=== PATIENT | female | born 1970 | race Caucasian/White ===

== ENCOUNTER 2018-08-09 14:33 | Observation (INO) ==
[2018-08-09] MEDS ORDERED: NORMAL SALINE 1,000 ML IV ONE ×2 (15:03→16:20)
[2018-08-09] MEDS ORDERED: INSULIN LISPRO 100 UNITS/ML VIAL SC ONE ×2 (15:06→16:20)
--- NOTE | 2018-08-09 15:07 | ERNOTE ---
Trauma/Assault HPI - Narrative Date of Service: 08/09/18 - General Stated Complaint: fall Time Seen by Provider: 08/09/18 14:44 Source: patient - Immun/Allergies/Home Medications Immunizations: IMMUNIZATION HX Immunizations Up to Date Yes History of Influenza Vaccine No Hx Pneumococcal Vaccination No Allergies/Adverse Reactions: Allergies asenapine maleate [From Saphris] Allergy (Intermediate, Verified 08/09/18 14:40) Hives metformin [From Glucophage] Allergy (Intermediate, Verified 08/09/18 14:40) generalized swelling, rash asenapine [From Saphris] Adverse Reaction (Severe, Verified 08/09/18 14:40) skin crawling and twitching clozapine [From Clozaril] Adverse Reaction (Severe, Verified 08/09/18 14:40) suicidal and homicidal ideations, rash Tetanus Vaccines and Toxoid [Tetanus] Adverse Reaction (Mild, Verified 08/09/18 14:40) bloated Home Medications: HOME MEDICATIONS albuterol sulfate HFA 90 mcg/actuation aerosol inhaler 1 inh IH Q6H PRN #18 g 04/11/18 [Last Taken Unknown] guaifenesin ER 1,200 mg tablet, extended release 12 hr 1,200 mg PO Q12H PRN #20 tab 04/11/18 [Last Taken 08/09/18] diazepam 5 mg tablet 5 mg PO QID PRN #120 tab 04/12/18 [Last Taken Unknown] escitalopram 20 mg tablet 20 mg PO DAILY #30 tab 04/12/18 [Last Taken Unknown] insulin degludec (U-200) 200 unit/mL (3 mL) subcutaneous pen 42 unit SUBCUT HS #9 ml 04/25/18 [Last Taken 08/08/18] blood sugar diagnostic strips See Dose Instructions .ROUTE .MEDSUPPLY #100 ea 05/17/18 [Last Taken Unknown] blood-glucose meter kit See Dose Instructions .ROUTE .MEDSUPPLY #1 ea 05/17/18 [Last Taken Unknown] lancets 33 gauge See Dose Instructions .ROUTE .MEDSUPPLY #100 ea 05/17/18 [Last Taken 08/09/18] omeprazole 20 mg capsule,delayed release 20 mg PO DAILY #30 cap 05/17/18 [Last Taken 08/09/18] atorvastatin 40 mg tablet 40 mg PO HS #90 tab 06/05/18 [Last Taken Unknown] lisinopril 5 mg tablet 5 mg PO DAILY #90 tab 06/05/18 [Last Taken Unknown] pen needle, diabetic 31 gauge x 09/21" See Dose Instructions .ROUTE .MEDSUPPLY #100 ea 06/05/18 [Last Taken 08/09/18] benztropine 1 mg tablet 1 mg PO TID PRN #90 tab 06/14/18 [Last Taken Unknown] dextroamphetamine-amphetamine 20 mg tablet 20 mg PO BID #60 tab 06/14/18 [Last Taken Unknown] escitalopram 10 mg tablet 10 mg PO DAILY #30 tab 06/14/18 [Last Taken Unknown] fluphenazine 5 mg tablet 5 mg PO TID PRN #90 tab 06/14/18 [Last Taken 08/09/18] lamotrigine 200 mg tablet 200 mg PO BID #60 tab 06/14/18 [Last Taken 08/09/18] lithium carbonate 150 mg capsule 300 mg PO HS PRN #60 cap 06/14/18 [Last Taken 08/09/18] zolpidem 10 mg tablet 10 mg PO HS #30 tab 06/14/18 [Last Taken 08/08/18] benzonatate 100 mg capsule 100 mg PO Q6H PRN #30 cap 06/20/18 [Last Taken Unknown] insulin aspart U- 100 100 unit/mL subcutaneous pen 20 unit SUBCUT TID #15 ml 06/28/18 [Last Taken 08/09/18] fluphenazine decanoate 25 mg/mL injection solution 50 mg SUB-Q Q3W #5 ml 07/26/18 [Last Taken Unknown] - History of Present Illness Date (Duration): 08/09/18 Narrative: This patient is a 47-year-old female who arrived by ambulance after syncopal episode. She said that she woke up today about 2:30 PM. She has not had anything to eat or drink today. She has not taken any medications. She was considering checking her blood sugar and getting something to eat when a neighbor knocked on the door. When she walked to the door, she ended up on the floor. She did not injure herself. She does not remember feeling dizzy or lightheaded prior. She had no palpitations. She denies having previous episodes of syncope or any arrh ythmias. She has not taken her medications this morning. Her blood sugar here was 439. Location Occurred: Reports: home Pain Location: Reports: none Method of Injury: Reports: fall Review of Systems - Review of Systems Constitutional: Absent: recent illness, fever, chills, diaphoresis, weakness, weight loss EYE: Absent: eye pain, eye discharge, blurred vision, double vision ENT: Absent: ear pain, ear discharge, nose pain, nose congestion, nasal drainage, sore throat Respiratory: Present: cough - She has a small chronic cough.. Absent: shortness of breath Cardiology: Present: syncope. Absent: chest pain, palpitations Gastrointestinal/Abdominal: Absent: nausea, vomiting, diarrhea, constipation, abdominal pain Genitourinary: Absent: frequency, pain, dysuria, hematuria Musculoskeletal: Absent: back pain, muscle pain, neck pain, joint pain Skin: Absent: rash Neurological: Present: anxiety. Absent: depressed, headache, dizziness/light- headedness, weakness, numbness Endocrine: Present: other - She has diabetes. She said her blood sugars normally in the 200s. It has been in the 400s in the past. Hematologic/Lymphatic: Present: other - No active bleeding. Psych: Present: anxiety. Absent: depressed Medical History (Last Reviewed 08/09/18 @ 15:13 by Bryn Marquez MD) COPD (chronic obstructive pulmonary disease) (Chronic) Bronchial asthma (Chronic) Schizoaffective disorder (Chronic) Borderline personality disorder (Chronic) Attention deficit disorder of adult with hyperactivity (Chronic) ADHD (attention deficit hyperactivity disorder) Borderline personality disorder Chronic headaches Degenerative disc disease lumbar Diabetes mellitus Fatigue due to depression GERD (gastroesophageal reflux disease) Generalized anxiety disorder Hyperlipidemia Hypersomnia Schizoaffective disorder, bipolar type Seasonal allergic rhinitis Alcoholism Surgical History: Surgical History (Last Reviewed 08/09/18 @ 15:13 by Bryn Marquez MD) S/P epidural steroid injection Family History: Family History (Last Reviewed 08/09/18 @ 15:13 by Bryn Marquez MD) Grandmother Cancer breast CA- paternal Heart disease maternal Diabetes maternal and paternal Mother Diabetes Father Bladder neoplasm, Onset Age: 70 malignant- Social History: Preferred Language Bengali Smoking Status Current every day smoker Have you smoked in the past 12 Yes months Abuse History No History of abuse Psych History Hx of Depression,Hx of Bipolar Disorder Alcohol Use occasionally Drug Use none (Last Reviewed 07/26/18 @ 15:44 by Flori Beckford RN) No Social History Section defined Physical Exam - Physical Exam General Appearance: Present: alert, no apparent distress, obese Head Exam: Present: normal inspection, no evidence of injury, no tenderness w palpation Eye Exam: Normal inspection: bilateral Ears, Nose, Throat: Present: normal ENT inspection, dry mucous membranes Neck: Present: normal inspection, nontender, supple Respiratory: Present: no respiratory distress, normal breath sounds, no accessory muscle use, chest nontender, lungs clear Cardiovascular/Chest: Present: regular rate, rhythm, no murmur Gastrointestinal/Abdominal: Present: normal bowel sounds, nontender, nondistended, no organomegaly Back Exam: Present: normal inspection, normal range of motion, no vertebral tenderness Extremity Exam: Present: normal inspection, non-tender, normal range of motion, no edema Neurological Exam: Present: alert, oriented, normal mood/affect, no motor/sensory deficits Skin Exam: Present: normal color, warm/dry Progress - Date and Time Seen: Date and Time: 08/09/18 15:44 The orthostatic vital signs were positive. 08/09/18 16:21 We talked about the labs and possible admission for acute kidney injury, dehydration, and hyperglycemia. The patient is not interested. She will be given more fluids and insulin and we will rediscuss this. 08/09/18 16:38 The chest x-ray is done and read by the radiologist. The patient will be started on antibiotics. Her cousin would like her admitted. 08/09/18 17:25 I talked with the patient again about admission. She is agreeable. I spoke with Dr. Landa and he is agreeable. - Results and Orders Patient's Lab Results:: I have reviewed the patient's lab results. Results and Orders: Laboratory Tests 08/09/18 08/09/18 08/09/18 15:01 15:10 15:10 WBC 19.6 H Hgb 11.6 L Hct 31.9 L Plt Count 351 Neutrophils % (Manual) 83 H Lymphocytes % (Manual) 7 L Monocytes % (Manual) 8 Atypic/Reactive Lymphs 2 Plasma Sodium 138 Potassium 4.0 Chloride 94 L Carbon Dioxide 27.5 Anion Gap 15.5 H BUN 63 H D Creatinine 1.95 H D Est GFR (Non-Af Amer) 29 L D Random Glucose 405 H Calcium Adj for Albumin 9.9 Total Bilirubin 0.4 AST 26 ALT 60 Alkaline Phosphatase 89 Total Protein 6.7 Albumin 2.8 L Urine Color Urine Appearance Urine pH Ur Specific [place] Urine Protein Urine Glucose (UA) Urine Ketones Urine Blood Urine Nitrate Urine Bilirubin Urine Urobilinogen Ur Leukocyte Esterase Urine RBC Urine WBC Ur Epithelial Cells Amorphous Sediment Urine Bacteria Urine Culture Comments Urine HCG, Qual Negative Urine Opiates Screen Barbiturate Screen Ur Phencyclidine Scrn Urine Amphetamine U Benzodiazepines Scrn Urine Cocaine Screen Urine Marijuana (THC) Serum Ketones Negative 08/09/18 08/09/18 15:32 15:37 WBC Hgb Hct Plt Count Neutrophils % (Manual) Lymphocytes % (Manual) Monocytes % (Manual) Atypic/Reactive Lymphs Plasma Sodium Potassium Chloride Carbon Dioxide Anion Gap BUN Creatinine Est GFR (Non-Af Amer) Random Glucose Calcium Adj for Albumin Total Bilirubin AST ALT Alkaline Phosphatase Total Protein Albumin Urine Color Yellow Urine Appearance Clear Urine pH 6.0 Ur Specific [place] 1.020 Urine Protein Negative Urine Glucose (UA) >=1000 H Urine Ketones 15 Urine Blood 5 H Urine Nitrate Negative Urine Bilirubin Negative Urine Urobilinogen Normal Ur Leukocyte Esterase Negative Urine RBC 5-10 H Urine WBC 0-5 Ur Epithelial Cells 5-10 H Amorphous Sediment Trace Urine Bacteria 1+ H Urine Culture Comments Culture to follow Urine HCG, Qual Urine Opiates Screen Negative Barbiturate Screen Negative Ur Phencyclidine Scrn Negative Urine Amphetamine Positive H U Benzodiazepines Scrn Positive H Urine Cocaine Screen Negative Urine Marijuana (THC) Negative Serum Ketones - Vital Signs Patient's Vital Signs:: I have reviewed the patient's vital signs. Vital Signs: Vital Signs 08/09/18 14:35 08/09/18 14:42 Temperature 36.3 C Pulse Rate 110 H 108 H Respiratory Rate 21 H Blood Pressure 152/85 H O2 Sat by Pulse Oximetry 97 - EKG EKG #1 EKG read: Interp. by me EKG Comments: Sinus tachycardia Rate [address] or T wave changes Compared to EKG dated 05/28/12, the rate is faster - X-Ray X-Ray #1 X-Ray: chest Interpretation: Reviewed by me X-ray Comments: HISTORY: Syncope, elevated WBC. Additional history from technologist: History of fall. History of asthma. TECHNIQUE: PA and lateral views of the chest were obtained. 2 images. COMPARISONS: 03/03/2008 FINDINGS: Chest PA Lateral * Normal to somewhat hyperinflated lungs noted. Linear opacity seen at the left lung base, with slight obscuration of the apex of the left hemidiaphragm suggestive of either potential infiltrate versus atelectasis. Central bronchial wall prominence noted. No significant vascular congestion suggested. No pneumothorax or pleural fluid collections. Cardiac silhouette within normal limits. Trachea is in normal position. Bones show degenerative changes of the spine. IMPRESSION: 1. Small left lung basilar atelectasis versus pulmonary infiltrate. Correlate clinically. Recommend radiographic follow-up (e.g. in 6-8 weeks) to document resolution, as potential neoplasm would be difficult to exclude. 2. Central bronchial wall prominence noted. Consider acute or chronic bronchitis or reactive airways disease. 3. Additional comments are as above. Electronically signed by Aleida Araya M.D. - Progress/Reassessment Chief Complaint: Fall Departure Clinical Impression: Acute kidney injury, Hyperglycemia, Chest x-ray abnormality - Departure Disposition: Still a patient Condition: Stable Critical Care Time - Critical Care Critical Time Spent:: No
[2018-08-09 15:32] LABS: ALT 60 U/L (19-67); AST 26 U/L (0-48); Albumin * 2.8 gm/dl (3.4-5.0); Alkaline Phosphatase * 89 U/L (50-170); Anion Gap 15.5 mmol/L (6.8-13.8); BUN/Creatinine Ratio 32.3 (9.0-21.6); Bilirubin, Total 0.4 mg/dL (0.0-1.1); Blood Urea Nitrogen 63 mg/dL (3-23); Ca. Corrected For Albumin 9.9 mg/dL (8.4-10.2); Calcium * 9.3 mg/dL (7.9-10.9); Carbon Dioxide 27.5 mmol/L (24-32.6); Chloride 94 mmol/L (97-106); Glucose * 405 mg/dL (70-110); Hematocrit 31.9 % (37.0-47.0); Hemoglobin 11.6 gm/dL (12.5-16.0); Mean Cell Volume 90.4 fl (78-100); Mean Corpuscular Hemoglobin 32.9 pg (27-31); Mean Corpuscular Hgb Conc 36.4 g/dl (32-36); Mean Platelet Volume 10.7 fl (8-12.5); Platelet Count 351 K/mm3 (150-450); Red Blood Count 3.53 M/mm3 (4.2-5.4); Sodium 133 mmol/L (132-142); Total Protein 6.7 gm/dL (6.2-8.2); White Blood Count 19.6 K/mm3 (4.0-10.5)
[2018-08-09 15:38] LABS: Urine Bilirubin Negative (NEGATIVE); Urine Ketone 15 mg/dL (NEGATIVE); Urine Nitrite Negative (NEGATIVE); Urine Protein Negative (NEGATIVE); Urine Urobilinogen Normal (NORMAL)
[2018-08-09 15:52] LABS: Total Cells Counted 100
[2018-08-09 15:56] LABS: Urine Appearance Clear (CLEAR); Urine Bacteria 1+; Urine Blood 5 /ul (NEGATIVE); Urine Color Yellow; Urine WBC 0-5 /hpf (0-5)
[2018-08-09 15:57] LABS: Urine Amorphous Sediment TRACE (NONE-FEW)
[2018-08-09 16:13] LABS: Atypical (Reactive) Lymph 2 % (0-2); Lymphocyte 7 % (20-51); Monocyte 8 % (0-9); Neutrophil 83 % (42-75); Neutrophil # 16.3 K/mm3 (1.3-6.0)
[2018-08-09 16:15] LABS: Platelet Estimate Normal (NORMAL)
[2018-08-09 16:16] LABS: Microcytosis 1+
[2018-08-09 16:17] LABS: Hypochromia 1+
[2018-08-09 16:25] LABS: Cocaine Ur Negative (NEGATIVE); Urine Barbiturate Negative (NEGATIVE); Urine Opiates Negative (NEGATIVE); Urine PCP Negative (NEGATIVE); Urine THC Negative (NEGATIVE)
[2018-08-09 16:26] LABS: Urine Benzodiazepines Positive (NEGATIVE)
[2018-08-09] MEDS ORDERED: cefTRIAXone SODIUM 1,000 MG/100 ML BAG IV ONE (16:33)
[2018-08-09] MEDS ORDERED: AZITHROMYCIN 250 MG TABLET PO ONE (16:34)
[2018-08-09] MEDS ORDERED: NORMAL SALINE 1,000 ML IV PRN (22:39)
--- NOTE | 2018-08-10 06:43 | HP ---
Chief Complaint - Chief Complaint Date of Service: 08/10/18 Time of Service: 06:00 Chief Complaint: Weakness, fatigue History of Present Illness: Patti is a 48 yo female that presents to the ER with nausea, vomiting, poor oral intake, and urinary frequency. She is a diabetic. Blood sugars are elevated but no evidence of diabetic ketoacidosis on bloodwork. Creatinine is elevated at 1.9, with a baseline near 1. She reports not drinking well for the last several days. No fever, chills. Medical History (Last Reviewed 08/19/18 @ 11:53 by Flori Beckford RN) COPD (chronic obstructive pulmonary disease) (Chronic) Bronchial asthma (Chronic) Schizoaffective disorder (Chronic) Borderline personality disorder (Chronic) Attention deficit disorder of adult with hyperactivity (Chronic) ADHD (attention deficit hyperactivity disorder) Borderline personality disorder Chronic headaches Degenerative disc disease lumbar Diabetes mellitus Fatigue due to depression GERD (gastroesophageal reflux disease) Generalized anxiety disorder Hyperlipidemia Hypersomnia Schizoaffective disorder, bipolar type Seasonal allergic rhinitis Alcoholism Surgical History: Surgical History (Last Reviewed 08/19/18 @ 11:53 by Flori Beckford RN) S/P epidural steroid injection Family History: Family History (Last Reviewed 08/19/18 @ 11:53 by Flori Beckford RN) Grandmother Diabetes maternal and paternal Heart disease maternal Cancer breast CA- paternal Mother Diabetes Father Bladder neoplasm, Onset Age: 70 malignant- Social History: Patient Lives/Resources Home Utilized Occupation unemployed Preferred Language Citizen Of [place] Do you have any alevism or No cultural preference? Smoking Status Current every day smoker Have you smoked in the past 12 Yes months Do you dip or chew tobacco No Abuse History No History of abuse Psych History Hx of Depression,Hx of Bipolar Disorder Alcohol Use occasionally Drug Use none (Last Reviewed 07/26/18 @ 15:44 by Flori Beckford RN) No Social History Section defined Review Of Systems (GEN) - Review of Systems Generalized/Overall Review: Present: Weakness, Fatigue. Absent: Chills, Fever EENTM: Present: No Symptoms Reported Respiratory: Absent: Cough, Shortness of Breath Cardiac: Absent: Chest Pain, Edema, Palpitations Abdominal: Present: Nausea, Vomiting, Abdominal Pain Genitourinary: Present: Frequency. Absent: Hematuria, Dysuria Musculoskeletal: Present: No Symptoms Reported Neurological: Present: No Symptoms Reported Skin: Present: No Symptoms Reported Immunizations: IMMUNIZATION HX Immunizations Up to Date Yes History of Influenza Vaccine No Hx Pneumococcal Vaccination No Allergies/Adverse Reactions: Allergies Allergy/AdvReac Type Severity Reaction Status Date / Time asenapine maleate Allergy Intermediate Hives Verified 08/19/18 11:48 [From Saphris] metformin [From Glucophage] Allergy Intermediate generalized Verified 08/19/18 11:48 swelling, rash asenapine [From Saphris] AdvReac Severe skin Verified 08/19/18 11:48 crawling and twitching clozapine [From Clozaril] AdvReac Severe suicidal Verified 08/19/18 11:48 and homicidal ideations, rash Tetanus Vaccines and Toxoid AdvReac Mild bloated Verified 08/19/18 11:48 [Tetanus] Home Medications: HOME MEDICATIONS albuterol sulfate HFA 90 mcg/actuation aerosol inhaler 1 inh IH Q6H PRN #18 g 04/11/18 [Last Taken Unknown] guaifenesin ER 1,200 mg tablet, extended release 12 hr 1,200 mg PO Q12H PRN #20 tab 04/11/18 [Last Taken 08/09/18] diazepam 5 mg tablet 5 mg PO QID PRN #120 tab 04/12/18 [Last Taken Unknown] escitalopram 20 mg tablet 20 mg PO DAILY #30 tab 04/12/18 [Last Taken Unknown] insulin degludec (U-200) 200 unit/mL (3 mL) subcutaneous pen 42 unit SUBCUT HS #9 ml 04/25/18 [Last Taken 08/08/18] blood sugar diagnostic strips See Dose Instructions .ROUTE .MEDSUPPLY #100 ea 05/17/18 [Last Taken Unknown] blood-glucose meter kit See Dose Instructions .ROUTE .MEDSUPPLY #1 ea 05/17/18 [Last Taken Unknown] lancets 33 gauge See Dose Instructions .ROUTE .MEDSUPPLY #100 ea 05/17/18 [Last Taken 08/09/18] omeprazole 20 mg capsule,delayed release 20 mg PO DAILY #30 cap 05/17/18 [Last [place] 08/09/18] atorvastatin 40 mg tablet 40 mg PO HS #90 tab 06/05/18 [Last Taken Unknown] lisinopril 5 mg tablet 5 mg PO DAILY #90 tab 06/05/18 [Last Taken Unknown] pen needle, diabetic 31 gauge x 3/16" See Dose Instructions .ROUTE .MEDSUPPLY #100 ea 06/05/18 [Last Taken 08/09/18] benztropine 1 mg tablet 1 mg PO TID PRN #90 tab 06/14/18 [Last Taken Unknown] dextroamphetamine-amphetamine 20 mg tablet 20 mg PO BID #60 tab 06/14/18 [Last Taken Unknown] escitalopram 10 mg tablet 10 mg PO DAILY #30 tab 06/14/18 [Last Taken Unknown] fluphenazine 5 mg tablet 5 mg PO TID PRN #90 tab 06/14/18 [Last Taken 08/09/18] lamotrigine 200 mg tablet 200 mg PO BID #60 tab 06/14/18 [Last Taken 08/09/18] lithium carbonate 150 mg capsule 300 mg PO HS PRN #60 cap 06/14/18 [Last Taken 08/09/18] zolpidem 10 mg tablet 10 mg PO HS #30 tab 06/14/18 [Last Taken 08/08/18] benzonatate 100 mg capsule 100 mg PO Q6H PRN #30 cap 06/20/18 [Last Taken Unknown] insulin aspart U- 100 100 unit/mL subcutaneous pen 20 unit SUBCUT TID #15 ml 06/28/18 [Last Taken 08/09/18] fluphenazine decanoate 25 mg/mL injection solution 50 mg SUB-Q Q3W #5 ml 07/26/18 [Last Taken Unknown] Levofloxacin [Levaquin] 750 mg PO DAILY #5 tab 08/10/18 [Last Taken Unknown] Exam - Exam Vital Signs: Vital Signs - Last Taken Temp 36.8 C 08/10/18 03:00 Pulse 101 H 08/10/18 03:00 Resp 16 08/10/18 03:00 BP 143/74 H 08/10/18 03:00 Pulse Ox 99 08/10/18 03:00 Constitutional: Present: Alert, Oriented x3, Cooperative ENT Exam: Present: hearing grossly normal Eye Exam: bilateral eye: normal inspection Respiratory: Present: lungs clear, normal breath sounds Cardiovascular/Chest: Present: regular rate, rhythm, no murmur Abdomen: Present: Normal bowel sounds, soft, nontender, nondistended Extremity: Present: normal inspection, normal capillary refill Skin Exam: Present: normal color, warm/dry, no cyanosis Lymphatic: Present: no adenopathy Neurologic: Present: alert, normal mood/affect, oriented x 3 Appearance: Present: appropriate appearance, appropriate insight Eye contact: Present: cooperative, good eye contact, normal speech Thoughts: Present: normal thought pattern, no apparent hallucination Diagnostic Studies: Abnormal Lab Results 08/09/18 08/09/18 08/09/18 Range/Units 15:10 15:10 15:32 WBC 19.6 H (4.0-10.5) K/mm3 RBC 3.53 L (4.2-5.4) M/mm3 Hgb 11.6 L (12.5-16.0) gm/dL Hct 31.9 L (37.0-47.0) % MCH 32.9 H (27-31) pg MCHC 36.4 H (32-36) g/dl Neutrophils % (Manual) 83 H (42-75) % Lymphocytes % (Manual) 7 L (20-51) % Neutrophils # (Manual) 16.3 H (1.3-6.0) K/mm3 Lymphocytes # (Manual) 1.4 L (1.5-3.5) k/mm3 Monocytes # (Manual) 1.6 H (0.0-1.0) k/mm3 Chloride 94 L (97-106) mmol/L Anion Gap 15.5 H (6.8-13.8) mmol/L BUN 63 H D (3-23) mg/dL Creatinine 1.95 H D (0.4-1.4) mg/dL Est GFR (Non-Af Amer) 29 L D (60-130) mL/min BUN/Creatinine Ratio 32.3 H (9.0-21.6) Random Glucose 405 H (70-110) mg/dL Albumin 2.8 L (3.4-5.0) gm/dl Urine Glucose (UA) >=1000 H (NEGATIVE) mg/dL Urine Blood 5 H (NEGATIVE) /ul Urine RBC 5-10 H (0-5) /hpf Ur Epithelial Cells 5-10 H (0-5) /hpf Urine Bacteria 1+ H (NONE) Urine Amphetamine (NEGATIVE) U Benzodiazepines Scrn (NEGATIVE) 08/09/18 Range/Units 15:37 WBC (4.0-10.5) K/mm3 RBC (4.2-5.4) M/mm3 Hgb (12.5-16.0) gm/dL Hct (37.0-47.0) % MCH (27-31) pg MCHC (32-36) g/dl Neutrophils % (Manual) (42-75) % Lymphocytes % (Manual) (20-51) % Neutrophils # (Manual) (1.3-6.0) K/mm3 Lymphocytes # (Manual) (1.5-3.5) k/mm3 Monocytes # (Manual) (0.0-1.0) k/mm3 Chloride (97-106) mmol/L Anion Gap (6.8-13.8) mmol/L BUN (3-23) mg/dL Creatinine (0.4-1.4) mg/dL Est GFR (Non-Af Amer) (60-130) mL/min BUN/Creatinine Ratio (9.0-21.6) Random Glucose (70-110) mg/dL Albumin (3.4-5.0) gm/dl Urine Glucose (UA) (NEGATIVE) mg/dL Urine Blood (NEGATIVE) /ul Urine RBC (0-5) /hpf Ur Epithelial Cells (0-5) /hpf Urine Bacteria (NONE) Urine Amphetamine Positive H (NEGATIVE) U Benzodiazepines Scrn Positive H (NEGATIVE) Laboratory Results WBC 19.6 K/mm3 (4.0-10.5) H 08/09/18 15:10 RBC 3.53 M/mm3 (4.2-5.4) L 08/09/18 15:10 Hgb 11.6 gm/dL (12.5-16.0) L 08/09/18 15:10 Hct 31.9 % (37.0-47.0) L 08/09/18 15:10 MCV 90.4 fl (78-100) 08/09/18 15:10 MCH 32.9 pg (27-31) H 08/09/18 15:10 MCHC 36.4 g/dl (32-36) H 08/09/18 15:10 RDW 13.0 % (11.5-14.0) 08/09/18 15:10 Plt Count 351 K/mm3 (150-450) 08/09/18 15:10 MPV 10.7 fl (8-12.5) 08/09/18 15:10 Neutrophils % (Manual) 83 % (42-75) H 08/09/18 15:10 Lymphocytes % (Manual) 7 % (20-51) L 08/09/18 15:10 Monocytes % (Manual) 8 % (0-9) 08/09/18 15:10 Neutrophils # (Manual) 16.3 K/mm3 (1.3-6.0) H 08/09/18 15:10 Lymphocytes # (Manual) 1.4 k/mm3 (1.5-3.5) L 08/09/18 15:10 Monocytes # (Manual) 1.6 k/mm3 (0.0-1.0) H 08/09/18 15:10 Atypic/Reactive Lymphs 2 % (0-2) 08/09/18 15:10 Platelet Estimate Normal (NORMAL) 08/09/18 15:10 Hypochromasia 1+ 08/09/18 15:10 Microcytosis 1+ 08/09/18 15:10 Sodium 133 mmol/L (132-142) 08/09/18 15:10 Plasma Sodium 138 mmol/L (130-142) 08/09/18 15:10 Potassium 4.0 mmol/L (3.4-4.6) 08/09/18 15:10 Chloride 94 mmol/L (97-106) L 08/09/18 15:10 Carbon Dioxide 27.5 mmol/L (24-32.6) 08/09/18 15:10 Anion Gap 15.5 mmol/L (6.8-13.8) H 08/09/18 15:10 BUN 63 mg/dL (3-23) H D 08/09/18 15:10 Creatinine 1.95 mg/dL (0.4-1.4) H D 08/09/18 15:10 Est GFR (Non-Af Amer) 29 mL/min (60-130) L D 08/09/18 15:10 BUN/Creatinine Ratio 32.3 (9.0-21.6) H 08/09/18 15:10 Random Glucose 405 mg/dL (70-110) H 08/09/18 15:10 Calcium 9.3 mg/dL (7.9-10.9) 08/09/18 15:10 Calcium Adj for Albumin 9.9 mg/dL (8.4-10.2) 08/09/18 15:10 Total Bilirubin 0.4 mg/dL (0.0-1.1) 08/09/18 15:10 AST 26 U/L (0-48) 08/09/18 15:10 ALT 60 U/L (19-67) 08/09/18 15:10 Alkaline Phosphatase 89 U/L (50-170) 08/09/18 15:10 Total Protein 6.7 gm/dL (6.2-8.2) 08/09/18 15:10 Albumin 2.8 gm/dl (3.4-5.0) L 08/09/18 15:10 Urine Color Yellow 08/09/18 15:32 Urine Appearance Clear (CLEAR) 08/09/18 15:32 Urine pH 6.0 pH (5.0-7.0) 08/09/18 15:32 Ur Specific [place] 1.020 SP.GR. (1.005-1.010) 08/09/18 15:32 Urine Protein Negative mg/dL (NEGATIVE) 08/09/18 15:32 Urine Glucose (UA) >=1000 mg/dL (NEGATIVE) H 08/09/18 15:32 Urine Ketones 15 mg/dL (NEGATIVE) 08/09/18 15:32 Urine Blood 5 /ul (NEGATIVE) H 08/09/18 15:32 Urine Nitrate Negative (NEGATIVE) 08/09/18 15:32 Urine Bilirubin Negative mg/dl (NEGATIVE) 08/09/18 15:32 Urine Urobilinogen Normal EU/dl (NORMAL) 08/09/18 15:32 Ur Leukocyte Esterase Negative /ul (NEGATIVE) 08/09/18 15:32 Urine RBC 5-10 /hpf (0-5) H 08/09/18 15:32 Urine WBC 0-5 /hpf (0-5) 08/09/18 15:32 Ur Epithelial Cells 5-10 /hpf (0-5) H 08/09/18 15:32 Amorphous Sediment Trace (NONE-FEW) 08/09/18 15:32 Urine Bacteria 1+ (NONE) H 08/09/18 15:32 Urine Culture Comments Culture to follow 08/09/18 15:32 Urine HCG, Qual Negative (NEGATIVE) 08/09/18 15:01 Urine Opiates Screen Negative (NEGATIVE) 08/09/18 15:37 Barbiturate Screen Negative (NEGATIVE) 08/09/18 15:37 Ur Phencyclidine Scrn Negative (NEGATIVE) 08/09/18 15:37 Urine Amphetamine Positive (NEGATIVE) H 08/09/18 15:37 U Benzodiazepines Scrn Positive (NEGATIVE) H 08/09/18 15:37 Urine Cocaine Screen Negative (NEGATIVE) 08/09/18 15:37 Urine Marijuana (THC) Negative (NEGATIVE) 08/09/18 15:37 Serum Ketones Negative (NEGATIVE) 08/09/18 15:10 Assessment/Plan - Assessment/Plan (1) Acute kidney injury Assessment: Patti is a 48 yo female with acute kidney injury with creatinine of 1.9 with a usual baseline of 1. Suspect prerenal due to dehydration from nausea and vomiting. May be GI virus vs UTI. Urine evaluation pending. Will treat with IV fluids and monitor for response. Will admit to observation. Problem: Acute
[2018-08-10 07:12] LABS: Hematocrit 27.1 % (37.0-47.0); Hemoglobin 9.5 gm/dL (12.5-16.0); Mean Cell Volume 93.4 fl (78-100); Mean Corpuscular Hemoglobin 32.8 pg (27-31); Mean Corpuscular Hgb Conc 35.1 g/dl (32-36); Mean Platelet Volume 10.7 fl (8-12.5); Neutrophil # 12.4 K/mm3 (1.3-6.0); Neutrophil % 77.9 % (42-75.0); Platelet Count 251 K/mm3 (150-450); Red Cell Distribution Width 13.2 % (11.5-14.0); White Blood Count 15.9 K/mm3 (4.0-10.5)
[2018-08-10 07:43] LABS: Albumin * 2.4 gm/dl (3.4-5.0); Anion Gap 13.6 mmol/L (6.8-13.8); BUN/Creatinine Ratio 35.7 (9.0-21.6); Bilirubin, Total 0.3 mg/dL (0.0-1.1); Ca. Corrected For Albumin 9.7 mg/dL (8.4-10.2); Calcium * 8.7 mg/dL (7.9-10.9); Carbon Dioxide 26.8 mmol/L (24-32.6); Potassium 3.4 mmol/L (3.4-4.6); Total Protein 5.9 gm/dL (6.2-8.2)
[2018-08-10] MEDS ORDERED: LEVOFLOXACIN 750 MG TABLET PO SCH (09:30)
[2018-08-10] MEDS ORDERED: PANTOPRAZOLE SODIUM 20 MG TABLET.DR PO SCH (11:00)
[2018-08-10] MEDS ORDERED: BENZTROPINE MESYLATE 0.5 MG TABLET PO PRN (11:36)
[2018-08-10] MEDS ORDERED: DIAZEPAM 5 MG TABLET PO PRN (11:36)
[2018-08-10] MEDS ORDERED: LITHIUM CARBONATE 150 MG CAPSULE PO PRN (11:36)
[2018-08-10] MEDS ORDERED: LISINOPRIL 5 MG TABLET PO SCH (11:45)
--- NOTE | 2018-08-10 11:59 | DS ---
(1) UTI (urinary tract infection) Problem: Acute Qualifiers: Urinary tract infection type: acute cystitis (2) Acute kidney injury Problem: Acute Description of Stay: Patti is a 47 yo female who was admitted for acute kidney injury with a creatinine of 1.9 and a baseline of 1. She is a diabetic but had no evidence of DKA or acidosis. She admitted to decreased fluid intake recently. Urine studies showed UTI. Chest Xray in the ER showed atelectasis vs pneumonia. She was given rocephin/azithromycin in the ER for possible pneumonia. I believe she has a UTI and I am not concerned about pneumonia as she does not show clinical signs or findings of pneumonia. I changed her to levaquin which will treat UTI and also cover pneumonia in case it is present. Her acute kidney injury was likely from poor oral intake and was treated and corrected with IV fluids. Today her renal function is back to normal and she will be discharged to home on Levaquin and continue her regular home medications. Procedures Performed: none Results and Findings: Pending Mircobiology Results 08/09/18 14:50 Urine,Catheterized Urine Culture - Preliminary Gram Negative Bacilli Lab Pending Results 08/09/18 15:01: Urine HCG, Qual Negative 08/09/18 15:10: WBC 19.6 H, RBC 3.53 L, Hgb 11.6 L, Hct 31.9 L, MCV 90.4, MCH 32.9 H, MCHC 36.4 H, RDW 13.0, Plt Count 351, MPV 10.7, Neutrophils % (Manual) 83 H, Lymphocytes % (Manual) 7 L, Monocytes % (Manual) 8, Neutrophils # (Manual) 16.3 H, Lymphocytes # (Manual) 1.4 L, Monocytes # (Manual) 1.6 H, Atypic/Reactive Lymphs 2, Platelet Estimate Normal, Hypochromasia 1+, Microcytosis 1+ 08/09/18 15:10: Sodium 133, Plasma Sodium 138, Potassium 4.0, Chloride 94 L, Carbon Dioxide 27.5, Anion Gap 15.5 H, BUN 63 H D, Creatinine 1.95 H D, Est GFR (Non-Af Amer) 29 L D, BUN/Creatinine Ratio 32.3 H, Random Glucose 405 H, Calcium 9.3, Calcium Adj for Albumin 9.9, Total Bilirubin 0.4, AST 26, ALT 60, Alkaline Phosphatase 89, Total Protein 6.7, Albumin 2.8 L, Serum Ketones Negative 08/09/18 15:32: Urine Color Yellow, Urine Appearance Clear, Urine pH 6.0, Ur Specific [place] 1.020, Urine Protein Negative, Urine Glucose (UA) >=1000 H, Urine Ketones 15, Urine Blood 5 H, Urine Nitrate Negative, Urine Bilirubin Negative, Urine Urobilinogen Normal, Ur Leukocyte Esterase Negative, Urine RBC 5-10 H, Urine WBC 0-5, Ur Epithelial Cells 5-10 H, Amorphous Sediment Trace, Urine Bacteria 1+ H, Urine Culture Comments Culture to follow 08/09/18 15:37: Urine Opiates Screen Negative, Barbiturate Screen Negative, Ur Phencyclidine Scrn Negative, Urine Amphetamine Positive H, U Benzodiazepines Scrn Positive H, Urine Cocaine Screen Negative, Urine Marijuana (THC) Negative 08/10/18 06:40: WBC 15.9 H, RBC 2.90 L, Hgb 9.5 L, Hct 27.1 L, MCV 93.4, MCH 32.8 H, MCHC 35.1, RDW 13.2, Plt Count 251, MPV 10.7, Immature Gran % (Auto) 0.60 H, Immature Gran # (Auto) 0.09 H, Neutrophils % 77.9 H, Lymphocytes % 12.5 L, Monocytes % 7.8, Eosinophils % 0.9, Basophils % 0.3, Nucleated RBC % 0.0, Neutrophils # 12.4 H, Lymphocytes # 1.99, Monocytes # 1.2 H, Eosinophils # 0.2, Absolute Basophils 0.0 08/10/18 06:40: Sodium 139, Plasma Sodium 141, Potassium 3.4, Chloride 102, Carbon Dioxide 26.8, Anion Gap 13.6, BUN 41 H, Creatinine 1.15, Est GFR (Non-Af Amer) 54 L D, BUN/Creatinine Ratio 35.7 H, Random Glucose 197 H D, Calcium 8.7, Calcium Adj for Albumin 9.7, Total Bilirubin 0.3, AST 16, ALT 38, Alkaline Phosphatase 77, Total Protein 5.9 L, Albumin 2.4 L Discharge Location: Home Disposition: Home self-care Condition: Stable Discharge Activity: Activity as tolerated Discharge Diet: Consistent carbs Referrals: Landa,Parag, DO [Staff Physician] - One Week (1 time hospital follow up) Yamila Garcia MD [Staff Physician] - (If she has not established with anyone recommend she establish with internal medicine) Problem Oriented Discharge Instructions to Patient/Family: Urinary Tract Infection, Pediatric, Acute Kidney Injury Prescriptions (Any new or edited meds): Levofloxacin [Levaquin] 750 mg PO DAILY #5 tablet Complete Home Medications List: Complete Home Medication List: albuterol sulfate HFA 90 mcg/actuation aerosol inhaler 1 inh IH Q6H PRN #18 g 04/11/18 guaifenesin ER 1,200 mg tablet, extended release 12 hr 1,200 mg PO Q12H PRN #20 tab 04/11/18 diazepam 5 mg tablet 5 mg PO QID PRN #120 tab 04/12/18 escitalopram 20 mg tablet 20 mg PO DAILY #30 tab 04/12/18 insulin degludec (U-200) 200 unit/mL (3 mL) subcutaneous pen 42 unit SUBCUT HS #9 ml 04/25/18 blood sugar diagnostic strips See Dose Instructions .ROUTE .MEDSUPPLY #100 ea 05/17/18 blood-glucose meter kit See Dose Instructions .ROUTE .MEDSUPPLY #1 ea 05/17/18 lancets 33 gauge See Dose Instructions .ROUTE .MEDSUPPLY #100 ea 05/17/18 omeprazole 20 mg capsule,delayed release 20 mg PO DAILY #30 cap 05/17/18 atorvastatin 40 mg tablet 40 mg PO HS #90 tab 06/05/18 lisinopril 5 mg tablet 5 mg PO DAILY #90 tab 06/05/18 pen needle, diabetic 31 gauge x 3/16" See Dose Instructions .ROUTE .MEDSUPPLY #100 ea 06/05/18 benztropine 1 mg tablet 1 mg PO TID PRN #90 tab 06/14/18 dextroamphetamine-amphetamine 20 mg tablet 20 mg PO BID #60 tab 06/14/18 escitalopram 10 mg tablet 10 mg PO DAILY #30 tab 06/14/18 fluphenazine 5 mg tablet 5 mg PO TID PRN #90 tab 06/14/18 lamotrigine 200 mg tablet 200 mg PO BID #60 tab 06/14/18 lithium carbonate 150 mg capsule 300 mg PO HS PRN #60 cap 06/14/18 zolpidem 10 mg tablet 10 mg PO HS #30 tab 06/14/18 benzonatate 100 mg capsule 100 mg PO Q6H PRN #30 cap 06/20/18 insulin aspart U- 100 100 unit/mL subcutaneous pen 20 unit SUBCUT TID #15 ml 06/28/18 fluphenazine decanoate 25 mg/mL injection solution 50 mg SUB-Q Q3W #5 ml 07/26/18 Levofloxacin [Levaquin] 750 mg PO DAILY #5 tablet 08/10/18
[2018-08-10] MEDS ORDERED: INSULIN ASPART 100 UNITS/ML VIAL SC SCH (12:00)
[2018-08-10 12:42] VITALS: BP 154/72
[2018-08-10] MEDS ORDERED: lamoTRIgine 100 MG TABLET PO SCH (21:00)
[2018-08-10] MEDS ORDERED: Insulin Degludec [Tresiba Flextouch U-200] SC SCH (21:00)
== END 2018-08-10 11:45 | disposition home or self-care (01) ==
LOC: ER 14:33 → MS 14:33
PROVIDERS: ADMIT Family Medicine; ATTEND Family Medicine
CPT/HCPCS: 36415; 71020; 71046; 80053; 80178; 80307; 81001; 82009; 84703; 85025; 87077; 87086; 87186; 93005; 96361; 96365; 96372; 99285; G0378

== ENCOUNTER 2018-12-17 21:12 | Observation (INO) ==
--- NOTE | 2018-12-17 22:54 | ERNOTE ---
Syncope ER HPI Stated Complaint: FALL Time Seen by Provider: 12/17/18 21:12 Source: patient, EMS, RN notes reviewed Exam Limitations: no limitations Immunizations: IMMUNIZATION HX Immunizations Up to Date Yes History of Influenza Vaccine Yes Hx Pneumococcal Vaccination Yes Allergies/Adverse Reactions: Allergies asenapine maleate [From Saphris] Allergy (Intermediate, Verified 12/11/18 11:23) Hives metformin [From Glucophage] Allergy (Intermediate, Verified 12/11/18 11:23) generalized swelling, rash asenapine [From Saphris] Adverse Reaction (Severe, Verified 12/11/18 11:23) skin crawling and twitching clozapine [From Clozaril] Adverse Reaction (Severe, Verified 12/11/18 11:23) suicidal and homicidal ideations, rash Tetanus Vaccines and Toxoid [Tetanus] Adverse Reaction (Mild, Verified 12/11/18 11:23) bloated Home Medications: HOME MEDICATIONS diazepam 5 mg tablet 5 mg PO QID PRN #120 tab 09/13/18 [Last Taken Unknown] escitalopram 20 mg tablet 20 mg PO DAILY #30 tab 09/13/18 [Last Taken Unknown] lithium carbonate 300 mg capsule 600 mg PO HS PRN #60 cap 09/13/18 [Last Taken Unknown] Atorvastatin Calcium 40 mg PO HS 12/17/18 [Last Taken Unknown] Benztropine Mesylate 1 mg PO TID 12/17/18 [Last Taken Unknown] Dextroamphetamine/Amphetamine [Amphetamine Salts] 20 mg PO BID 12/17/18 [Last Taken Unknown] Fluphenazine HCl [Fluphenazine] 5 mg PO TID 12/17/18 [Last Taken Unknown] Gabapentin 100 mg PO BID 12/17/18 [Last Taken Unknown] Insulin Aspart [Novolog Flexpen] 20 unit SQ TID 12/17/18 [Last Taken Unknown] Insulin Degludec [Tresiba Flextouch U-200] 42 unit SQ HS 12/17/18 [Last Taken Unknown] Lamotrigine [Lamictal] 200 mg PO BID 12/17/18 [Last Taken Unknown] Lisinopril 5 mg PO DAILY 12/17/18 [Last Taken Unknown] Omeprazole [Prilosec] 20 mg PO DAILY 12/17/18 [Last Taken Unknown] Pantoprazole Sodium 40 mg PO DAILY 12/17/18 [Last Taken Unknown] Zolpidem Tartrate 10 mg PO HS 12/17/18 [Last Taken Unknown] Ferrous Sulfate 325 mg PO DAILY #100 tab 12/19/18 [Last Taken Unknown] traMADol HCL [Tramadol HCl] 50 mg PO QID #60 tab 12/19/18 [Last Taken Unknown] - History of Present Illness Narrative: Patient brought in by EMS after having multiple falling episodes at home. She was noted to have a low blood pressure, and that every time she got up to walk around (just today), she would "pass out" and fall. EMS quite concerned over patient's inability to stay upright. Patient appears very fatigued. She will wake up and converse, but promptly goes right back to sleep. Prior Episodes: Present: multiple episodes today Symptoms prior to episode: Present: diaphoresis, light headedness, rapid heart rate Activity at time of episode: Present: standing Character of event: Present: brief (seconds), awake and alert after becoming supine. Absent: prolonged (minutes), dazed, still comatose, almost passed out, became unresponsive, seizure activity observed Location of Injury: Present: none Current Symptoms: Present: back to normal - as long as she remains laying down Prior Treament: Denies: recently seen - patient has been off of most of her medications, her friend brought in a large plastic box with her medications. She is noted to have just started back on some of her medications. Review of Systems - Review of Systems Constitutional: Present: diaphoresis, weakness, fatigue, malaise, decreased activity level. Absent: recent illness, fever, chills EYE: Absent: eye pain, eye discharge ENT: Absent: ear pain, nasal drainage, sore throat Respiratory: Absent: shortness of breath, cough Cardiology: Absent: chest pain, palpitations Gastrointestinal/Abdominal: Absent: nausea, vomiting, diarrhea, abdominal pain Genitourinary: Absent: frequency, pain, dysuria Musculoskeletal: Absent: back pain, muscle pain, joint pain Skin: Present: no symptoms reported Neurological: Present: dizziness/light-headedness, weakness. Absent: anxiety, depressed Endocrine: Present: no symptoms reported Hematologic/Lymphatic: Present: no symptoms reported Psych: Present: emotional problems Medical History (Updated 12/19/18 @ 11:55 by Anabell Tejada) COPD (chronic obstructive pulmonary disease) (Chronic) Bronchial asthma (Chronic) Schizoaffective disorder (Chronic) Borderline personality disorder (Chronic) Attention deficit disorder of adult with hyperactivity (Chronic) Left knee pain Onset Date: Unknown ADHD (attention deficit hyperactivity disorder) Borderline personality disorder Chronic headaches Degenerative disc disease lumbar Diabetes mellitus Fatigue due to depression GERD (gastroesophageal reflux disease) Generalized anxiety disorder Hyperlipidemia Hypersomnia Schizoaffective disorder, bipolar type Seasonal allergic rhinitis Alcoholism Surgical History: Surgical History (Updated 08/26/18 @ 08:13 by Parag Landa DO) S/P epidural steroid injection Family History: Family History (Updated 01/16/18 @ 16:06 by Flori Beckford, RODY) Grandmother Diabetes maternal and paternal Heart disease maternal Cancer breast CA- paternal Mother Diabetes Father Bladder neoplasm, Onset Age: 70 malignant- Social History: Preferred Language Nepalese Do you have any roman catholic or No cultural preference? Smoking Status Current every day smoker Smoking packs per day 0.5 Abuse History No History of abuse Psych History Hx of Depression,Hx of Bipolar Disorder Alcohol Use none Drug Use none (Last Reviewed 12/11/18 @ 11:25 by Flori Beckford RN) No Social History Section defined Physical Exam - Physical Exam General Appearance: Present: wd/wn, alert - as long as she is laying down Head Exam: Present: normal inspection, no evidence of injury Eye Exam: Normal inspection: bilateral, PERRL: bilateral, EOMI: bilateral, Conjunctivae pale: bilateral Ears, Nose, Throat: Present: normal ENT inspection, normal pharynx Neck: Present: normal inspection, nontender Respiratory: Present: no respiratory distress, normal breath sounds, no accessory muscle use, chest nontender, lungs clear Cardiovascular/Chest: Present: regular rate, rhythm - as long as is laying down, no murmur Gastrointestinal/Abdominal: Present: normal bowel sounds, nontender, nondistended, soft Back Exam: Present: normal inspection, normal range of motion Extremity Exam: Present: normal inspection, non-tender, normal range of motion, no edema Neurological Exam: Present: alert, oriented, normal mood/affect, no motor/sen wei deficits Skin Exam: Present: warm/dry, pallor Progress - Results and Orders Patient's Lab Results:: I have reviewed the patient's lab results. Results and Orders: Hgb 5.5; HCT 17.9; Segs 76.4; Lymph 13.4 BUN 31; Cr 1.54; T Protein 5.7; Alb 2.2; Iron 19; TIBC 283; Transferrin % 7; Lactic 2.3 Urine Glucose >/= 1000 Tox: Amphetamine +; Benzodiazepines +; [place] 0.3; ETOH <3.0 - Vital Signs Patient's Vital Signs:: I have reviewed the patient's vital signs. Vital Signs: Vital Signs 12/17/18 21:19 Temperature 37.6 C Pulse Rate 96 Respiratory Rate 16 Blood Pressure 99/49 - Progress/Reassessment Chief Complaint: Syncopal Episode Progress:: Unchanged Progress Note-Subjective: 12/19/18 11:53 Patient is extremely anemic. I called and spoke with Dr. Gonzales for admission, noting that the patient needs at least 4 units of packed red blood cells. He agreed to the admission. Departure Clinical Impression: Orthostatic syncope Iron deficiency anemia Qualifiers: Iron deficiency anemia type: unspecified iron deficiency Qualified Code(s): D50.9 - Iron deficiency anemia, unspecified Hypotension Qualifiers: Hypotension type: hypotension due to hypovolemia Qualified Code(s): I95.89 - Other hypotension; E86.1 - Hypovolemia - Departure Disposition: Still a patient Condition: Good
[2018-12-17 23:16] LABS: Mean Cell Volume 77.8 fl (78-100); Mean Corpuscular Hemoglobin 23.9 pg (27-31); Mean Corpuscular Hgb Conc 30.7 g/dl (32-36); Mean Platelet Volume 10.9 fl (8-12.5); Neutrophil # 6.9 K/mm3 (1.3-6.0); Neutrophil % 76.4 % (42-75.0); Platelet Count 269 K/mm3 (150-450); Red Cell Distribution Width 17.6 % (11.5-14.0); White Blood Count 9.1 K/mm3 (4.0-10.5)
[2018-12-17 23:19] LABS: Hematocrit 17.9 % (37.0-47.0); Hemoglobin 5.5 gm/dL (12.5-16.0)
[2018-12-17 23:27] LABS: ALT 15 U/L (19-67); AST 12 U/L (0-48); Albumin * 2.2 gm/dl (3.4-5.0); Alkaline Phosphatase * 70 U/L (50-170); Anion Gap 13.2 mmol/L (6.8-13.8); BUN/Creatinine Ratio 20.1 (9.0-21.6); Bilirubin, Total 0.2 mg/dL (0.0-1.1); Blood Urea Nitrogen 31 mg/dL (3-23); Ca. Corrected For Albumin 9.5 mg/dL (8.4-10.2); Calcium * 8.4 mg/dL (7.9-10.9); Carbon Dioxide 29.2 mmol/L (24-32.6); Chloride 98 mmol/L (97-106); Glucose * 102 mg/dL (70-110); Potassium 3.4 mmol/L (3.4-4.6); Sodium 137 mmol/L (132-142); Total Protein 5.7 gm/dL (6.2-8.2)
[2018-12-17 23:44] LABS: Urine Bilirubin Negative (NEGATIVE); Urine Blood Negative /ul (NEGATIVE); Urine Ketone Negative (NEGATIVE); Urine Nitrite Negative (NEGATIVE); Urine Protein Negative (NEGATIVE); Urine Specific Gravity <=1.005 SP.GR. (1.005-1.010); Urine Urobilinogen Normal (NORMAL)
[2018-12-17 23:53] LABS: Urine Appearance Clear (CLEAR); Urine Color Yellow; Urine WBC 0-5 /hpf (0-5)
[2018-12-17 23:54] LABS: Urine Bacteria TRACE; Urine RBC None Seen /hpf (0-5)
[2018-12-17 23:58] LABS: Cocaine Ur Negative (NEGATIVE); Urine Barbiturate Negative (NEGATIVE); Urine Benzodiazepines Positive (NEGATIVE); Urine Opiates Negative (NEGATIVE); Urine PCP Negative (NEGATIVE); Urine THC Negative (NEGATIVE)
[2018-12-18] MEDS ORDERED: FUROSEMIDE 10 MG/ML VIAL IV ONE (01:45)
[2018-12-18] MEDS ORDERED: FUROSEMIDE 10 MG/ML VIAL ONE (11:02)
[2018-12-18] MEDS ORDERED: DIAZEPAM 5 MG TABLET PO PRN (11:25)
[2018-12-18] MEDS ORDERED: LITHIUM CARBONATE 150 MG CAPSULE PO PRN (11:25)
--- NOTE | 2018-12-18 11:39 | HP ---
Chief Complaint - Chief Complaint Date of Service: 12/18/18 Time of Service: 08:30 Chief Complaint: Syncopal episodes with orthostatic changes i.e. standing up. Medical History (Updated 12/11/18 @ 10:23 by PAULO Hicks) COPD (chronic obstructive pulmonary disease) (Chronic) Bronchial asthma (Chronic) Schizoaffective disorder (Chronic) Borderline personality disorder (Chronic) Attention deficit disorder of adult with hyperactivity (Chronic) Left knee pain Onset Date: Unknown ADHD (attention deficit hyperactivity disorder) Borderline personality disorder Chronic headaches Degenerative disc disease lumbar Diabetes mellitus Fatigue due to depression GERD (gastroesophageal reflux disease) Generalized anxiety disorder Hyperlipidemia Hypersomnia Schizoaffective disorder, bipolar type Seasonal allergic rhinitis Alcoholism Surgical History: Surgical History (Updated 08/26/18 @ 08:13 by Parag Landa DO) S/P epidural steroid injection Family History: Family History (Updated 01/16/18 @ 16:06 by Flori Beckford, RN) Grandmother Diabetes maternal and paternal Heart disease maternal Cancer breast CA- paternal Mother Diabetes Father Bladder neoplasm, Onset Age: 70 malignant- Social History: Patient Lives/Resources [facility] Utilized Occupation Disabled Preferred Language Sudanese Do you have any adventism or Yes: Orthodox cultural preference? Smoking Status Current every day smoker Have you smoked in the past 12 Yes months Smoking packs per day 0.5 Abuse History No History of abuse Psych History Hx of Depression,Hx of Bipolar Disorder Alcohol Use none Drug Use none (Last Reviewed 12/11/18 @ 11:25 by Flori Beckford, RN) No Social History Section defined Review Of Systems (GEN) - Review of Systems Generalized/Overall Review: Present: Weakness, Malaise, Fatigue EENTM: Present: No Symptoms Reported Respiratory: Present: No Symptoms Reported Cardiac: Present: Syncope Abdominal: Present: No Symptoms Reported Genitourinary: Present: No Symptoms Reported Musculoskeletal: Present: No Symptoms Reported Neurological: Present: Depressed, Emotional Problems, Weakness Skin: Present: Change in Color Endocrine: Present: No Symptoms Reported Misc: All systems neg except as marked Immunizations: IMMUNIZATION HX Immunizations Up to Date Yes History of Influenza Vaccine Yes Hx Pneumococcal Vaccination Yes Allergies/Adverse Reactions: Allergies Allergy/AdvReac Type Severity Reaction Status Date / Time asenapine maleate Allergy Intermediate Hives Verified 12/11/18 11:23 [From Saphris] metformin [From Glucophage] Allergy Intermediate generalized Verified 12/11/18 11:23 swelling, rash asenapine [From Saphris] AdvReac Severe skin Verified 12/11/18 11:23 crawling and twitching clozapine [From Clozaril] AdvReac Severe suicidal Verified 12/11/18 11:23 and homicidal ideations, rash Tetanus Vaccines and Toxoid AdvReac Mild bloated Verified 12/11/18 11:23 [Tetanus] Home Medications: HOME MEDICATIONS diazepam 5 mg tablet 5 mg PO QID PRN #120 tab 09/13/18 [Last Taken Unknown] escitalopram 20 mg tablet 20 mg PO DAILY #30 tab 09/13/18 [Last Taken Unknown] lithium carbonate 300 mg capsule 600 mg PO HS PRN #60 cap 09/13/18 [Last Taken Unknown] Atorvastatin Calcium 40 mg PO HS 12/17/18 [Last Taken Unknown] Benztropine Mesylate 1 mg PO TID 12/17/18 [Last Taken Unknown] Dextroamphetamine/Amphetamine [Amphetamine Salts] 20 mg PO BID 12/17/18 [Last Taken Unknown] Fluphenazine HCl [Fluphenazine] 5 mg PO TID 12/17/18 [Last Taken Unknown] Gabapentin 100 mg PO BID 12/17/18 [Last Taken Unknown] Insulin Aspart [Novolog Flexpen] 20 unit SQ TID 12/17/18 [Last Taken Unknown] Insulin Degludec [Tresiba Flextouch U-200] 42 unit SQ HS 12/17/18 [Last Taken Unknown] Lamotrigine [Lamictal] 200 mg PO BID 12/17/18 [Last Taken Unknown] Lisinopril 5 mg PO DAILY 12/17/18 [Last Taken Unknown] Omeprazole [Prilosec] 20 mg PO DAILY 12/17/18 [Last Taken Unknown] Pantoprazole Sodium 40 mg PO DAILY 12/17/18 [Last Taken Unknown] Zolpidem Tartrate 10 mg PO HS 12/17/18 [Last Taken Unknown] Exam - Exam Vital Signs: Vital Signs - Last Taken Temp 36.6 C 12/18/18 11:05 Pulse 87 12/18/18 11:05 Resp 16 12/18/18 11:05 BP 107/48 12/18/18 11:05 Pulse Ox 94 12/18/18 11:05 Constitutional: Present: Alert, Oriented x3, Cooperative, Well developed, Well nourished, No distress ENT Exam: Present: normal ENT inspection, hearing grossly normal, pharynx normal, TMs normal Eye Exam: bilateral eye: normal inspection, PERRL, EOMI Neck: Present: non-tender, full range of motion, supple Back Exam: Present: normal inspection, no CVA tenderness, no vertebral tenderness Breasts: Present: Exam deferred Respiratory: Present: chest non-tender, lungs clear, normal breath sounds, no respiratory distress, no accessory muscle use Cardiovascular/Chest: Present: other - Orthostatic syncope Peripheral Pulses: carotid (R): 2+, carotid (L): 2+, radial (R): 2+, radial (L): 2+ Abdomen: Present: Normal bowel sounds, soft, nontender, nondistended, no rebound tenderness, no hepatospenomegaly, no masses /Rectal: Present: Exam deferred Extremity: Present: normal range of motion, non-tender, normal inspection, no pedal edema, no calf tenderness, normal capillary refill Lymphatic: Present: no adenopathy Neurologic: Present: 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, no motor/sensory deficits, alert, normal mood/affect, oriented x 3, motor weakness Appearance: Present: appropriate appearance, appropriate insight, neat, no memory impairment Eye contact: Present: cooperative, good eye contact, normal speech, avoids eye contact Thoughts: Present: normal thought pattern, no apparent hallucination, normal mood /affect Diagnostic Studies: Abnormal Lab Results 12/17/18 12/17/18 12/17/18 Range/Units 23:10 23:10 23:10 RBC 2.30 L (4.2-5.4) M/mm3 Hgb 5.5 L* D (12.5-16.0) gm/dL Hct 17.9 L* D (37.0-47.0) % MCV 77.8 L (78-100) fl MCH 23.9 L (27-31) pg MCHC 30.7 L (32-36) g/dl RDW 17.6 H (11.5-14.0) % Immature Gran # (Auto) 0.04 H (0.000-0.0310) K/mm3 Neutrophils % 76.4 H (42-75.0) % Lymphocytes % 13.4 L (20-51) % Neutrophils # 6.9 H (1.3-6.0) K/mm3 Lymphocytes # 1.21 L (1.5-3.5) k/mm3 BUN 31 H (3-23) mg/dL Creatinine 1.54 H (0.4-1.4) mg/dL Est GFR (Non-Af Amer) 38 L (60-130) mL/min Lactic Acid, Venous 2.3 H* (0.4-2.0) mmol/L ALT 15 L (19-67) U/L Total Protein 5.7 L (6.2-8.2) gm/dL Albumin 2.2 L (3.4-5.0) gm/dl Urine Glucose (UA) (NEGATIVE) mg/dL Urine Amphetamine (NEGATIVE) U Benzodiazepines Scrn (NEGATIVE) Crossmatch 12/17/18 12/17/18 12/17/18 Range/Units 23:10 23:35 23:35 RBC (4.2-5.4) M/mm3 Hgb (12.5-16.0) gm/dL Hct (37.0-47.0) % MCV (78-100) fl MCH (27-31) pg MCHC (32-36) g/dl RDW (11.5-14.0) % Immature Gran # (Auto) (0.000-0.0310) K/mm3 Neutrophils % (42-75.0) % Lymphocytes % (20-51) % Neutrophils # (1.3-6.0) K/mm3 Lymphocytes # (1.5-3.5) k/mm3 BUN (3-23) mg/dL Creatinine (0.4-1.4) mg/dL Est GFR (Non-Af Amer) (60-130) mL/min Lactic Acid, Venous (0.4-2.0) mmol/L ALT (19-67) U/L Total Protein (6.2-8.2) gm/dL Albumin (3.4-5.0) gm/dl Urine Glucose (UA) >=1000 H (NEGATIVE) mg/dL Urine Amphetamine Positive H (NEGATIVE) U Benzodiazepines Scrn Positive H (NEGATIVE) Crossmatch See Detail Laboratory Results WBC 9.1 K/mm3 (4.0-10.5) 12/17/18 23:10 RBC 2.30 M/mm3 (4.2-5.4) L 12/17/18 23:10 Hgb 5.5 gm/dL (12.5-16.0) L* D 12/17/18 23:10 Hct 17.9 % (37.0-47.0) L* D 12/17/18 23:10 MCV 77.8 fl (78-100) L 12/17/18 23:10 MCH 23.9 pg (27-31) L 12/17/18 23:10 MCHC 30.7 g/dl (32-36) L 12/17/18 23:10 RDW 17.6 % (11.5-14.0) H 12/17/18 23:10 Plt Count 269 K/mm3 (150-450) 12/17/18 23:10 MPV 10.9 fl (8-12.5) 12/17/18 23:10 Immature Gran % (Auto) 0.40 % (0.001-0.429) 12/17/18 23:10 Immature Gran # (Auto) 0.04 K/mm3 (0.000-0.0310) H 12/17/18 23:10 76.4 % (42-75.0) H 12/17/18 23:10 13.4 % (20-51) L 12/17/18 23:10 8.9 % (0.0-9) 12/17/18 23:10 0.7 % (0.0-3.0) 12/17/18 23:10 0.2 % (0.0-1.0) 12/17/18 23:10 Nucleated RBC % 0.0 k/mm3 (0-1) 12/17/18 23:10 6.9 K/mm3 (1.3-6.0) H 12/17/18 23:10 1.21 k/mm3 (1.5-3.5) L 12/17/18 23:10 0.8 k/mm3 (0.0-1.0) 12/17/18 23:10 0.1 k/mm3 (0.0-0.7) 12/17/18 23:10 Absolute Basophils 0.0 k/mm3 (0.0-0.1) 12/17/18 23:10 Sodium 137 mmol/L (132-142) 12/17/18 23:10 137 mmol/L (130-142) 12/17/18 23:10 Potassium 3.4 mmol/L (3.4-4.6) D 12/17/18 23:10 Chloride 98 mmol/L (97-106) 12/17/18 23:10 Carbon Dioxide 29.2 mmol/L (24-32.6) 12/17/18 23:10 13.2 mmol/L (6.8-13.8) 12/17/18 23:10 BUN 31 mg/dL (3-23) H 12/17/18 23:10 1.54 mg/dL (0.4-1.4) H 12/17/18 23:10 Est GFR (Non-Af Amer) 38 mL/min (60-130) L 12/17/18 23:10 20.1 (9.0-21.6) 12/17/18 23:10 102 mg/dL (70-110) 12/17/18 23:10 1.0 mmol/L (0.4-2.0) 12/18/18 01:40 Calcium 8.4 mg/dL (7.9-10.9) 12/17/18 23:10 Calcium Adj for Albumin 9.5 mg/dL (8.4-10.2) 12/17/18 23:10 0.2 mg/dL (0.0-1.1) 12/17/18 23:10 AST 12 U/L (0-48) 12/17/18 23:10 ALT 15 U/L (19-67) L 12/17/18 23:10 70 U/L (50-170) 12/17/18 23:10 5.7 gm/dL (6.2-8.2) L 12/17/18 23:10 2.2 gm/dl (3.4-5.0) L 12/17/18 23:10 Yellow 12/17/18 23:35 Clear (CLEAR) 12/17/18 23:35 6.0 pH (5.0-7.0) 12/17/18 23:35 Ur Specific [place] <=1.005 SP.GR. (1.005-1.010) 12/17/18 23:35 Negative mg/dL (NEGATIVE) 12/17/18 23:35 >=1000 mg/dL (NEGATIVE) H 12/17/18 23:35 Negative mg/dL (NEGATIVE) 12/17/18 23:35 Negative /ul (NEGATIVE) 12/17/18 23:35 Negative (NEGATIVE) 12/17/18 23:35 Negative mg/dl (NEGATIVE) 12/17/18 23:35 Normal EU/dl (NORMAL) 12/17/18 23:35 Ur Leukocyte Esterase Negative /ul (NEGATIVE) 12/17/18 23:35 None seen /hpf (0-5) 12/17/18 23:35 0-5 /hpf (0-5) 12/17/18 23:35 Ur Epithelial Cells 0-5 /hpf (0-5) 12/17/18 23:35 Trace (NONE) 12/17/18 23:35 No culture indicated 12/17/18 23:35 Negative (NEGATIVE) 12/17/18 23:35 Negative (NEGATIVE) 12/17/18 23:35 Ur Phencyclidine Scrn Negative (NEGATIVE) 12/17/18 23:35 Urine Amphetamine Positive (NEGATIVE) H 12/17/18 23:35 U Benzodiazepines Scrn Positive (NEGATIVE) H 12/17/18 23:35 Negative (NEGATIVE) 12/17/18 23:35 Negative (NEGATIVE) 12/17/18 23:35 Ethyl Alcohol Less than 3.0 mg/dL (0.0-10.0) 12/17/18 23:10 Blood Type O Positive 12/17/18 23:10 Antibody Screen Negative 12/17/18 23:10 Crossmatch See Detail 12/17/18 23:10 Assessment/Plan - Narrative Narrative: 1. Type and cross 4 units of packed red blood cells and infuse when ready. The second unit is finishing at the time of my visit. 2. Check serum iron ferritin TIBC and reticulocyte count on blood that was drawn in ER pretransfusion 3. Consistent carb diet 4. Check orthostatic pulse and blood pressures with vital signs 5. Continue most of her home medications. Note, 1 takes a great deal of psych meds including lithium that may be interfering with iron absorption. 6. Start on ferrous sulfate 325 mg 1 p.o. daily - Assessment/Plan (1) Orthostatic syncope Problem: Acute (2) Iron deficiency anemia Problem: Acute (3) Psychosis Problem: Acute (4) Diabetes Problem: Chronic
[2018-12-18] MEDS: FERROUS SULFATE 325 MG TABLET PO SCH (12:16)
[2018-12-18] MEDS: BENZTROPINE MESYLATE 0.5 MG TABLET PO SCH ×2 (12:16→16:55)
[2018-12-18] MEDS: INSULIN ASPART 100 UNITS/ML VIAL SC SCH ×2 (12:17→16:55)
[2018-12-18 12:39] LABS: Iron 19 mcg/dL (35-120); Transferrin Sat. (% Sat.) 7 % (15-55)
[2018-12-18] MEDS: FLUPHENAZINE HCL 5 MG TABLET PO SCH ×2 (16:54)
[2018-12-18] MEDS ORDERED: ZOLPIDEM TARTRATE 10 MG TABLET PO SCH (21:00)
[2018-12-18 21:34] LABS: Hematocrit 35.9 % (37.0-47.0); Hemoglobin 11.2 gm/dL (12.5-16.0)
[2018-12-18] MEDS: lamoTRIgine 100 MG TABLET PO SCH (21:42)
[2018-12-18] MEDS: GABAPENTIN 100 MG CAPSULE PO SCH (21:42)
[2018-12-19 05:50] LABS: Hematocrit 34.4 % (37.0-47.0); Mean Cell Volume 82.7 fl (78-100); Mean Corpuscular Hemoglobin 26.4 pg (27-31); Mean Platelet Volume 10.7 fl (8-12.5); Neutrophil # 5.5 K/mm3 (1.3-6.0); Neutrophil % 66.2 % (42-75.0); Platelet Count 217 K/mm3 (150-450); Red Blood Count 4.16 M/mm3 (4.2-5.4); Red Cell Distribution Width 16.3 % (11.5-14.0); White Blood Count 8.3 K/mm3 (4.0-10.5)
[2018-12-19 06:14] LABS: Albumin * 2.2 gm/dl (3.4-5.0); Anion Gap 11.7 mmol/L (6.8-13.8); BUN/Creatinine Ratio 18.3 (9.0-21.6); Bilirubin, Total 0.4 mg/dL (0.0-1.1); Ca. Corrected For Albumin 9.5 mg/dL (8.4-10.2); Calcium * 8.4 mg/dL (7.9-10.9); Carbon Dioxide 27.7 mmol/L (24-32.6); Potassium 3.4 mmol/L (3.4-4.6); Total Protein 5.9 gm/dL (6.2-8.2)
[2018-12-19] MEDS ORDERED: PANTOPRAZOLE SODIUM 40 MG TABLET.EC PO SCH (07:00)
[2018-12-19] MEDS ORDERED: NON-FORMULARY 1 DOSE DOSE (Omeprazole 20 MG) PO SCH (09:00)
[2018-12-19] MEDS ORDERED: LISINOPRIL 5 MG TABLET PO SCH (09:00)
[2018-12-19] MEDS ORDERED: ESCITALOPRAM OXALATE 10 MG TAB PO SCH (09:00)
[2018-12-19] MEDS: FERROUS SULFATE 325 MG TABLET PO SCH (09:40)
[2018-12-19] MEDS: BENZTROPINE MESYLATE 0.5 MG TABLET PO SCH (09:40)
[2018-12-19] MEDS: FLUPHENAZINE HCL 5 MG TABLET PO SCH (09:40)
[2018-12-19] MEDS: lamoTRIgine 100 MG TABLET PO SCH (09:41)
[2018-12-19] MEDS: GABAPENTIN 100 MG CAPSULE PO SCH (09:44)
[2018-12-19] MEDS: INSULIN ASPART 100 UNITS/ML VIAL SC SCH (09:47)
--- NOTE | 2018-12-19 10:44 | DS ---
(1) Orthostatic syncope Problem: Acute (2) Iron deficiency anemia Problem: Acute (3) Psychosis Problem: Chronic (4) Diabetes Problem: Chronic Qualifiers: Diabetes mellitus type: type 2 Diabetes mellitus senior living insulin use: with wound/ostomy nurse use Diabetes mellitus complication status: without complication Qualified Code(s): E11.9 - Type 2 diabetes mellitus without complications; Z79.4 - [facility] (current) use of insulin Description of Stay: Patti Prasad is a 48-year-old female who presented to the emergency room because every time she would stand up she would pass out. She had fallen onto her right knee and has quite a lot of pain there and that is her principal complaint that remains. In the emergency room she was evaluated and found to have a hemoglobin of 5.5 g. Her lactic acid was elevated at 2.6 and her EGFR was at 36. The lactic acid went to 1.0 on the second check. The EGFR has recovered to 60 this morning and is now normal. Her hemoglobin after 4 units of packed red cells being infused has risen to 11 g this morning. She is feeling much better. Of course her orthostatic syncope is gone now. Her acute kidney injury appears to have recovered completely. She is alert and conversant and feeling much better. She is requesting pain medication for her right knee. I will allow her tramadol to take 1 4 times daily for her knee pain. She will follow with Dr. York within 2 weeks. I will order a CBC to be done in 2 weeks. She takes a great deal of psych medicines which I have not altered. However, I wonder if some of them or at least lithium may be interfering with her iron absorption. She is profoundly iron deficient and she is started on iron supplements today. Her disposition is improved and her prognosis is good. Procedures Performed: see notes below List Procedures: 4 units of packed red blood cells infused Results and Findings: Lab Pending Results 12/17/18 22:57: Iron 19 L, TIBC 283, Transferrin % Sat 7 L 12/17/18 22:57: Ferritin 18 12/17/18 23:10: WBC 9.1, RBC 2.30 L, Hgb 5.5 L* D, Hct 17.9 L* D, MCV 77.8 L, MCH 23.9 L, MCHC 30.7 L, RDW 17.6 H, Plt Count 269, MPV 10.9, Immature Gran % (Auto) 0.40, Immature Gran # (Auto) 0.04 H, Neutrophils % 76.4 H, Lymphocytes % 13.4 L, Monocytes % 8.9, Eosinophils % 0.7, Basophils % 0.2, Nucleated RBC % 0.0, Neutrophils # 6.9 H, Lymphocytes # 1.21 L, Monocytes # 0.8, Eosinophils # 0.1, Absolute Basophils 0.0 12/17/18 23:10: Sodium 137, Plasma Sodium 137, Potassium 3.4 D, Chloride 98, Carbon Dioxide 29.2, Anion Gap 13.2, BUN 31 H, Creatinine 1.54 H, Est GFR (Non- Af Amer) 38 L, BUN/Creatinine Ratio 20.1, Random Glucose 102, Calcium 8.4, Calcium Adj for Albumin 9.5, Total Bilirubin 0.2, AST 12, ALT 15 L, Alkaline Phosphatase 70, Total Protein 5.7 L, Albumin 2.2 L, Ethyl Alcohol Less than 3.0 12/17/18 23:10: Lactic Acid, Venous 2.3 H* 12/17/18 23:10: Blood Type O Positive, Antibody Screen Negative, Crossmatch See Detail 12/17/18 23:10: [place] 0.3 L 12/17/18 23:35: Urine Color Yellow, Urine Appearance Clear, Urine pH 6.0, Ur Specific [place] <=1.005, Urine Protein Negative, Urine Glucose (UA) >=1000 H, Urine Ketones Negative, Urine Blood Negative, Urine Nitrate Negative, Urine Bilirubin Negative, Urine Urobilinogen Normal, Ur Leukocyte Esterase Negative, Urine RBC None seen, Urine WBC 0-5, Ur Epithelial Cells 0-5, Urine Bacteria Trace, Urine Culture Comments No culture indicated 12/17/18 23:35: Urine Opiates Screen Negative, Barbiturate Screen Negative, Ur Phencyclidine Scrn Negative, Urine Amphetamine Positive H, U Benzodiazepines Scrn Positive H, Urine Cocaine Screen Negative, Urine Marijuana (THC) Negative 12/18/18 01:40: Lactic Acid, Venous 1.0 12/18/18 21:30: Hgb 11.2 L, Hct 35.9 L 12/19/18 05:35: WBC 8.3, RBC 4.16 L, Hgb 11.0 L, Hct 34.4 L, MCV 82.7, MCH 26.4 L, MCHC 32.0, RDW 16.3 H, Plt Count 217, MPV 10.7, Immature Gran % (Auto) 0.50 H, Immature Gran # (Auto) 0.04 H, Neutrophils % 66.2, Lymphocytes % 22.7, Monocytes % 7.5, Eosinophils % 2.7, Basophils % 0.4, Nucleated RBC % 0.0, Neutrophils # 5.5, Lymphocytes # 1.88, Monocytes # 0.6, Eosinophils # 0.2, Absolute Basophils 0.0 12/19/18 05:35: Sodium 137, Plasma Sodium 140, Potassium 3.4, Chloride 101, Carbon Dioxide 27.7, Anion Gap 11.7, BUN 19, Creatinine 1.04, Est GFR (Non-Af Amer) 60 D, BUN/Creatinine Ratio 18.3, Random Glucose 273 H D, Calcium 8.4, Calcium Adj for Albumin 9.5, Total Bilirubin 0.4, AST 14, ALT 19, Alkaline Phosphatase 71, Total Protein 5.9 L, Albumin 2.2 L Discharge Location: Home Disposition: Home self-care Condition: Good Face to Face Encounter completed per [facility] Guidelines: No Discharge Activity: Activity as tolerated Discharge Diet: Consistent carbs Referrals: Yamila Garcia MD [Primary Care Provider] - Additional Patient Instructions (free text): Please schedule to see Dr. York in 2 weeks -Please make TCM appointment unless half-way discharge. Thank you! Kelly at extension [phone]. Prescriptions (Any new or edited meds): Ferrous Sulfate 325 mg PO DAILY #100 tablet traMADol HCL [Tramadol HCl] 50 mg PO QID #60 tablet Complete Home Medications List: Complete Home Medication List: diazepam 5 mg tablet 5 mg PO QID PRN #120 tab 09/13/18 escitalopram 20 mg tablet 20 mg PO DAILY #30 tab 09/13/18 lithium carbonate 300 mg capsule 600 mg PO HS PRN #60 cap 09/13/18 Atorvastatin Calcium 40 mg PO HS 12/17/18 Benztropine Mesylate 1 mg PO TID 12/17/18 Dextroamphetamine/Amphetamine [Amphetamine Salts] 20 mg PO BID 12/17/18 Fluphenazine HCl [Fluphenazine] 5 mg PO TID 12/17/18 Gabapentin 100 mg PO BID 12/17/18 Insulin Aspart [Novolog Flexpen] 20 unit SQ TID 12/17/18 Insulin Degludec [Tresiba Flextouch U-200] 42 unit SQ HS 12/17/18 Lamotrigine [Lamictal] 200 mg PO BID 12/17/18 Lisinopril 5 mg PO DAILY 12/17/18 Omeprazole [Prilosec] 20 mg PO DAILY 12/17/18 Pantoprazole Sodium 40 mg PO DAILY 12/17/18 Zolpidem Tartrate 10 mg PO HS 12/17/18 Ferrous Sulfate 325 mg PO DAILY #100 tablet 12/19/18 traMADol HCL [Tramadol HCl] 50 mg PO QID #60 tablet 12/19/18
[2018-12-19 11:26] VITALS: BP 126/77
== END 2018-12-19 11:45 | disposition home or self-care (01) ==
LOC: MS 21:12 → ER 21:12 → MS 12-18 02:38
PROVIDERS: ADMIT Family Medicine; ATTEND Internal Medicine
CPT/HCPCS: 36415; 36430; 71010; 71020; 71045; 71046; 80053; 80178; 80307; 80320; 81001; 82728; 83540; 83550; 83605; 85014; 85018; 85025; 86850; 93005; 96372; 96374; 99285; G0378; G0481; P9016

== ENCOUNTER 2019-07-01 16:42 | Inpatient (IN) ==
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
[2019-07-01 17:25] LABS: Hemoglobin 10.3 gm/dL (12.5-16.0); Mean Cell Volume 85.5 fl (78-100); Mean Corpuscular Hemoglobin 30.4 pg (27-31); Mean Corpuscular Hgb Conc 35.5 g/dl (32-36); Mean Platelet Volume 10.3 fl (8-12.5); Platelet Count 485 K/mm3 (150-450); Red Blood Count 3.39 M/mm3 (4.2-5.4); Red Cell Distribution Width 13.4 % (11.5-14.0); White Blood Count 24.4 K/mm3 (4.0-10.5)
[2019-07-01 17:27] LABS: Total Cells Counted 100
[2019-07-01 17:30] LABS: Eosinophil 1 % (0-3); Lymphocyte 5 % (20-51); Monocyte 4 % (0-9); Neutrophil 90 % (42-75); Platelet Estimate Normal (NORMAL); RBC Morphology Normal (NORMAL)
[2019-07-01 17:33] LABS: Albumin * 2.3 gm/dl (3.4-5.0); Anion Gap 14.6 mmol/L (6.8-13.8); BUN/Creatinine Ratio 18.3 (9.0-21.6); Bilirubin, Total 0.5 mg/dL (0.0-1.1); Ca. Corrected For Albumin 9.6 mg/dL (8.4-10.2); Calcium * 8.6 mg/dL (7.9-10.9); Carbon Dioxide 27.5 mmol/L (24-32.6); Potassium 4.1 mmol/L (3.4-4.6); Total Protein 7.4 gm/dL (6.2-8.2)
[2019-07-01 17:35] LABS: Hemoglobin A1C 8.5 % (4.00-6.0)
[2019-07-01 17:50] LABS: Urine Bilirubin Negative (NEGATIVE); Urine Ketone 5 mg/dL (NEGATIVE); Urine Nitrite Negative (NEGATIVE); Urine Protein 30 mg/dL (NEGATIVE); Urine Urobilinogen Normal (NORMAL)
[2019-07-01 17:58] LABS: Urine Appearance Slightly Cloudy (CLEAR); Urine Bacteria None Seen; Urine Blood 5 /ul (NEGATIVE); Urine Color Yellow; Urine WBC None Seen /hpf (0-5)
[2019-07-01 18:11] LABS: Cocaine Ur Negative (NEGATIVE); Urine Barbiturate Negative (NEGATIVE); Urine Benzodiazepines Negative (NEGATIVE); Urine Opiates Negative (NEGATIVE); Urine PCP Negative (NEGATIVE)
[2019-07-01 18:12] LABS: Urine THC Positive (NEGATIVE)
[2019-07-01] MEDS ORDERED: NORMAL SALINE 1,000 ML IV ONE (18:18)
[2019-07-01] MEDS ORDERED: ONDANSETRON HCL/PF 2 MG/ML VIAL IV ONE (18:19)
[2019-07-01] MEDS ORDERED: INSULIN REGULAR, HUMAN 100 UNITS/ML VIAL IV ONE (18:35)
[2019-07-01] MEDS ORDERED: cefTRIAXone SODIUM 1,000 MG/100 ML BAG IV ONE (19:05)
[2019-07-01] MEDS ORDERED: MORPHINE SULFATE 4 MG/ML SYRG IV PRN (19:57)
[2019-07-01] MEDS: NORMAL SALINE 1,000 ML IV PRN (20:29)
[2019-07-01] MEDS ORDERED: FLUPHENAZINE HCL 5 MG TABLET PO PRN (22:52)
[2019-07-01] MEDS ORDERED: INSULIN DEGLUDEC SQ SCH (22:52)
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
[2019-07-02] MEDS: INSULIN GLARGINE,HUM.REC.ANLOG 100 UNITS/ML VIAL SC SCH ×2 (00:55→20:39)
[2019-07-02] MEDS: MORPHINE SULFATE 2 MG/ML DISP.SYRIN IV PRN ×10 (03:17→22:39)
[2019-07-02] MEDS: NORMAL SALINE 1,000 ML IV PRN ×3 (04:38→22:36)
[2019-07-02] MEDS ORDERED: MORPHINE SULFATE 2 MG/ML DISP.SYRIN ONE (04:40)
[2019-07-02 07:20] LABS: Mean Cell Volume 86.9 fl (78-100); Mean Corpuscular Hemoglobin 30.7 pg (27-31); Mean Corpuscular Hgb Conc 35.4 g/dl (32-36); Neutrophil # 13.3 K/mm3 (1.3-6.0); Neutrophil % 80.7 % (42-75.0); Platelet Count 300 K/mm3 (150-450); Red Blood Count 2.44 M/mm3 (4.2-5.4); Red Cell Distribution Width 13.5 % (11.5-14.0); White Blood Count 16.5 K/mm3 (4.0-10.5)
[2019-07-02 07:24] LABS: Hematocrit 21.2 % (37.0-47.0); Hemoglobin 7.5 gm/dL (12.5-16.0)
[2019-07-02] MEDS: INSULIN LISPRO 100 UNITS/ML VIAL SC SCH ×3 (07:27→17:38)
[2019-07-02] MEDS: PANTOPRAZOLE SODIUM 20 MG TABLET.DR PO SCH (07:27)
[2019-07-02 07:32] LABS: Anion Gap 10.9 mmol/L (6.8-13.8); BUN/Creatinine Ratio 23.1 (9.0-21.6); Calcium * 7.7 mg/dL (7.9-10.9); Carbon Dioxide 28.6 mmol/L (24-32.6); Potassium 3.5 mmol/L (3.4-4.6)
[2019-07-02 08:14] LABS: Iron 19 mcg/dL (35-120); Transferrin Sat. (% Sat.) 12 % (15-55)
[2019-07-02 08:41] LABS: Folate 3.6 ng/mL (8.6-58.9)
[2019-07-02] MEDS: lamoTRIgine 100 MG TABLET PO SCH ×2 (09:08→20:32)
[2019-07-02] MEDS: ALPRAZolam 1 MG TABLET PO PRN ×2 (09:21→18:31)
--- NOTE | 2019-07-02 09:50 | PN ---
Progess Note - Interim Date: 07/02/19 Time: 09:43 Narrative: 07/02/19 09:43 We will defer from doing a full progress note as patient was seen by Dr. Irby and his H & P was done on 07/02/2019. I was called this morning because her hemoglobin was down to 7.5 from 10.3 on admission. She has received almost 3 L of IV at this time. Looking at her hemoglobin trend she had an anemia of 5.5 on 2018. It steadily climbed to 12.7 on 2018. And started going down again after that. She denied any hematemesis, hematochezia, melena and denied any taking any NSAIDs or alcohol. Her acute on chronic anemia is normocytic and likely is multifactorial secondary to iron deficiency and anemia of chronic disease. If she is positive for occult blood she will may need endoscopic procedure inpatient otherwise will need one scheduled as an outpatient. I ordered for iron work-up, B12, and folate levels and stool for occult blood. Patient is asymptomatic as far as her anemia at this point. Her blood pressure tends to remain in the low 100s to upper 90s which may be her baseline. Will monitor her H&H and will transfuse if it starts to go down further or if she becomes symptomatic. In the meantime we will do Aquacel Ag and dress her wound with pads and ABDs. We will continue with her Rocephin and will refer her to the wound clinic in the morning.
[2019-07-02] MEDS: NICOTINE 21 MG PATC TD SCH (11:18)
[2019-07-02 12:45] LABS: Hemoglobin 8.1 gm/dL (12.5-16.0)
[2019-07-02 12:47] LABS: Hematocrit 23.5 % (37.0-47.0)
[2019-07-02 20:05] LABS: Mean Cell Volume 88.4 fl (78-100); Mean Corpuscular Hemoglobin 30.6 pg (27-31); Mean Corpuscular Hgb Conc 34.6 g/dl (32-36); Mean Platelet Volume 9.1 fl (8-12.5); Platelet Count 308 K/mm3 (150-450); Red Blood Count 2.58 M/mm3 (4.2-5.4); Red Cell Distribution Width 13.6 % (11.5-14.0); White Blood Count 16.6 K/mm3 (4.0-10.5)
[2019-07-02 20:12] LABS: Hemoglobin 7.9 gm/dL (12.5-16.0)
[2019-07-02 20:13] LABS: Hematocrit 22.8 % (37.0-47.0)
[2019-07-02] MEDS: ROSUVASTATIN CALCIUM 20 MG TABLET PO SCH (20:33)
[2019-07-02] MEDS: Suvorexant [Belsomra] 20 MG PO SCH (20:33)
[2019-07-03] MEDS: MORPHINE SULFATE 2 MG/ML DISP.SYRIN IV PRN ×5 (01:00→10:37)
[2019-07-03 06:31] LABS: Mean Cell Volume 88.8 fl (78-100); Mean Corpuscular Hemoglobin 30.3 pg (27-31); Mean Corpuscular Hgb Conc 34.1 g/dl (32-36); Mean Platelet Volume 9.8 fl (8-12.5); Neutrophil # 11.1 K/mm3 (1.3-6.0); Neutrophil % 80.4 % (42-75.0); Platelet Count 337 K/mm3 (150-450); Red Blood Count 2.51 M/mm3 (4.2-5.4); Red Cell Distribution Width 13.7 % (11.5-14.0); White Blood Count 13.8 K/mm3 (4.0-10.5)
[2019-07-03 06:34] LABS: Anion Gap 10.9 mmol/L (6.8-13.8); Calcium * 7.7 mg/dL (7.9-10.9); Carbon Dioxide 25.8 mmol/L (24-32.6); Estimated Creat Clear 70.3; Potassium 3.7 mmol/L (3.4-4.6)
[2019-07-03 06:41] LABS: Hematocrit 22.3 % (37.0-47.0); Hemoglobin 7.6 gm/dL (12.5-16.0)
[2019-07-03] MEDS: NORMAL SALINE 1,000 ML IV PRN (06:44)
[2019-07-03] MEDS: PANTOPRAZOLE SODIUM 20 MG TABLET.DR PO SCH (07:06)
[2019-07-03] MEDS: INSULIN LISPRO 100 UNITS/ML VIAL SC SCH ×3 (07:07→16:43)
[2019-07-03] MEDS: lamoTRIgine 100 MG TABLET PO SCH ×2 (08:18→20:37)
[2019-07-03] MEDS: FOLIC ACID 1 MG TABLET PO SCH (08:19)
[2019-07-03] MEDS: NICOTINE 21 MG PATC TD SCH (10:43)
[2019-07-03] MEDS: ALPRAZolam 1 MG TABLET PO PRN ×2 (10:49→21:58)
--- NOTE | 2019-07-03 13:18 | PN ---
Subjective - Date and Time Seen Date: 07/03/19 Time: 13:17 Subjective Narrative: Patient looks and feels much better this morning. Foot pain is improving. Still has some discharge from the bottom of her right foot where her ulcer is draining. Wound care has been consulted. Her vital signs have been stable and she is been afebrile. White cell count continues to trend downward. Objective - Review of Systems Generalized/Overall Review: Denies: Weakness, Chills, Fever EENTM: Reports: No Symptoms Reported Respiratory: Denies: Cough, Shortness of Breath Cardiac: Denies: Chest Pain, Palpitations Abdominal: Denies: Nausea, Vomiting, Abdominal Pain Genitourinary Symptoms: Denies: Burning, Itching, Urgency, Frequency Musculoskeletal Complaints: Reports: No Symptoms Reported Neurological: Reports: No Symptoms Reported Skin: Reports: Lesions, Change in Color Endocrine: Reports: No Symptoms Reported - Vitals Vitals: Last Vital Signs Temp 36.9 C 07/03/19 10:25 Pulse 92 07/03/19 10:25 Resp 15 07/03/19 10:25 BP 100/65 07/03/19 10:25 Pulse Ox 95 07/03/19 10:25 - Abnormal Lab Findings Abnormal Lab Findings: Abnormal Lab Results 07/02/19 07/03/19 07/03/19 Range/Units 20:00 06:18 06:18 WBC 16.6 H 13.8 H (4.0-10.5) K/mm3 RBC 2.58 L 2.51 L (4.2-5.4) M/mm3 Hgb 7.9 L* 7.6 L* (12.5-16.0) gm/dL Hct 22.8 L* 22.3 L* (37.0-47.0) % Immature Gran % (Auto) 0.50 H (0.001-0.429) % Immature Gran # (Auto) 0.07 H (0.000-0.0310) K/mm3 Neutrophils % 80.4 H (42-75.0) % Lymphocytes % 10.2 L (20-51) % Neutrophils # 11.1 H (1.3-6.0) K/mm3 Lymphocytes # 1.41 L (1.5-3.5) k/mm3 Monocytes # 1.1 H (0.0-1.0) k/mm3 Random Glucose 216 H (70-110) mg/dL Calcium 7.7 L (7.9-10.9) mg/dL - Exam Constitutional: Present: Alert, Oriented x3, Cooperative ENT Exam: Present: hearing grossly normal, moist mucous membranes Neck: Present: non-tender, supple Breasts: Present: Exam deferred Respiratory: Present: lungs clear, normal breath sounds Cardiovascular/Chest: Present: regular rate, rhythm, no murmur Abdomen: Present: Normal bowel sounds, soft, nontender, nondistended /Rectal: Present: Exam deferred Skin Exam: Present: other - Abscess plantar aspect of right foot with surrounding cellulitis, improving Appearance: Present: appropriate insight, disheveled Eye contact: Present: cooperative, good eye contact Thoughts: Present: normal thought pattern, normal mood /affect Assessment/Plan Plan Narrative: 40-year-old female with 48-year-old female with cellulitic infection right lower extremity as well as uncontrolled diabetes with hyperglycemia. Patient given a gram of Rocephin in the ER, switched her over to clindamycin today. WBC improving, will repeat CBC in the morning. Wound care consult placed today. Currently ulcer is dressed, bandages clean and dry. Hyponatremia not accurate after correcting for hypergly cemia, sodium still corrected out to be normal. Her vital signs are stable and she is been afebrile. Restarted her medications and will adjust her long- acting. Patient in agreement with treatment plan, nurse will call with questions or concerns. SCDs to be worn for DVT prophylaxis. Continue consistent carb diet. - Problems/Diagnosis (1) Cellulitis Problem: Acute (2) Ulcer of foot Problem: Acute (3) Leukocytosis Problem: Acute (4) Hyperglycemia due to type 1 diabetes mellitus Problem: Acute (5) Hyponatremia Problem: Ruled-out
[2019-07-03] MEDS ORDERED: traMADol HCL 50 MG TABLET PO PRN (14:33)
[2019-07-03] MEDS: CLINDAMYCIN HCL 150 MG CAPSULE PO SCH ×2 (16:04→21:58)
[2019-07-03] MEDS: oxyCODONE HCL/ACETAMINOPHEN 1 TAB TABLET PO PRN (19:19)
[2019-07-03] MEDS: ROSUVASTATIN CALCIUM 20 MG TABLET PO SCH (20:37)
[2019-07-03] MEDS: INSULIN GLARGINE,HUM.REC.ANLOG 100 UNITS/ML VIAL SC SCH (20:38)
[2019-07-03] MEDS: Suvorexant [Belsomra] 20 MG PO SCH (20:43)
[2019-07-04] MEDS: oxyCODONE HCL/ACETAMINOPHEN 1 TAB TABLET PO PRN ×2 (01:25→09:51)
[2019-07-04] MEDS: CLINDAMYCIN HCL 150 MG CAPSULE PO SCH ×2 (06:58→14:58)
[2019-07-04] MEDS: PANTOPRAZOLE SODIUM 20 MG TABLET.DR PO SCH (06:58)
[2019-07-04 06:59] LABS: Mean Cell Volume 88.3 fl (78-100); Mean Corpuscular Hgb Conc 33.9 g/dl (32-36); Mean Platelet Volume 9.3 fl (8-12.5); Neutrophil % 79.9 % (42-75.0); Platelet Count 309 K/mm3 (150-450); Red Blood Count 2.57 M/mm3 (4.2-5.4); Red Cell Distribution Width 13.6 % (11.5-14.0)
[2019-07-04 07:13] LABS: Anion Gap 12.6 mmol/L (6.8-13.8); BUN/Creatinine Ratio 10.8 (9.0-21.6); Calcium * 8.4 mg/dL (7.9-10.9); Carbon Dioxide 26.1 mmol/L (24-32.6); Estimated Creat Clear 66.6; Potassium 3.7 mmol/L (3.4-4.6)
[2019-07-04 07:18] LABS: Hemoglobin 7.7 gm/dL (12.5-16.0)
[2019-07-04 07:19] LABS: Hematocrit 22.7 % (37.0-47.0)
[2019-07-04] MEDS: INSULIN LISPRO 100 UNITS/ML VIAL SC SCH ×2 (07:20→11:52)
[2019-07-04] MEDS: lamoTRIgine 100 MG TABLET PO SCH (08:18)
[2019-07-04] MEDS: FOLIC ACID 1 MG TABLET PO SCH (08:18)
[2019-07-04] MEDS: NICOTINE 21 MG PATC TD SCH (09:48)
--- NOTE | 2019-07-04 14:27 | DS ---
(1) Cellulitis Problem: Acute (2) Ulcer of foot Problem: Acute (3) Leukocytosis Problem: Acute (4) Hyperglycemia due to type 1 diabetes mellitus Problem: Acute (5) Hyponatremia Problem: Ruled-out Date of Discharge:: 07/04/19 Hospital Course: 48-year-old female presented to the hospital with right lower extremity pain. She is found have a cellulitic infection as well as a plantar ulcer on her right foot just distal to her first toe. She was initially started on IV antibiotics but was transitioned to oral clindamycin orally. on the day of discharge. White count initially was 24.4 and down trended to 15 today. She has been afebrile and her vital signs have been stable. She was thought to have hyponatremia on admission but after correcting for her elevated glucose it was within normal limit. Sugars were much more stable after adjustments to her home insulin was changed. Her basal dose of long-acting was increased to 50 units. Her other insulin was continued as previously prescribed. Sugars are much better. Patient feels much better and is ready to be discharged home. Patient needs to follow-up with her PCP in 1 week to make sure resolution of infection is complete, she may need repeat CBC at that time. Patient will also need to be referred to wound care at that time When she completes antibiotics for cellulitic infection. Patti Prasad is confined to home due to ulcer on her foot, uncontrolled diabetes with hyperglycemia, and her cellulitic infection. She is noncompliant with treatment in the past which I think is likely due to schizoaffective disorder with bipolar disorder, as well as her ADHD. Patient is very pleasant though and should do well with home health. The need for half-way is medication management and training due to lack of understanding of how to use her medications leading to non-adherence. The need for home health care skilled services is directly related to the time spent [id number] with this patient Procedures Performed: none Results and Findings: Pending Mircobiology Results 07/01/19 18:07 Blood Blood Culture - Preliminary NO GROWTH AFTER 48 HOURS 07/01/19 17:10 Blood Blood Culture - Preliminary NO GROWTH AFTER 48 HOURS Lab Pending Results 07/01/19 17:10: WBC 24.4 H, RBC 3.39 L, Hgb 10.3 L, Hct 29.0 L, MCV 85.5, MCH 30.4, MCHC 35.5, RDW 13.4, Plt Count 485 H, MPV 10.3, Neutrophils % (Manual) 90 H, Lymphocytes % (Manual) 5 L, Monocytes % (Manual) 4, Eosinophils % (Manual) 1, Neutrophils # (Manual) 22.0 H, Lymphocytes # (Manual) 1.2 L, Monocytes # (Manual) 1.0, Eosinophils # (Manual) 0.2, Platelet Estimate Normal, RBC Morphology Normal 07/01/19 17:10: Sodium 130 L, Plasma Sodium 135, Potassium 4.1, Chloride 92 L, Carbon Dioxide 27.5, Anion Gap 14.6 H, BUN 22, Creatinine 1.20, Est GFR (Non-Af Amer) 51 L, BUN/Creatinine Ratio 18.3, Random Glucose 423 H, Calcium 8.6, Calcium Adj for Albumin 9.6, Total Bilirubin 0.5, AST 7, ALT 17 L, Alkaline Phosphatase 110, Total Protein 7.4, Albumin 2.3 L, Amylase 19 L, Lipase 63 L 07/01/19 17:10: Mean Blood Glucose 197, Hemoglobin A1c 8.5 H 07/01/19 17:10: C-Reactive Prot, Quant 31.0 H, Serum Ketones Negative 07/01/19 17:10: Lactic Acid, Venous 1.7 07/01/19 17:10: Procalcitonin 0.42 07/01/19 17:40: Urine Color Yellow, Urine Appearance Slightly cloudy, Urine pH 6.0, Ur Specific [place] 1.010, Urine Protein 30 H, Urine Glucose (UA) >=1000 H, Urine Ketones 5, Urine Blood 5 H, Urine Nitrate Negative, Urine Bilirubin Negative, Prot Sulfosalicylic Acd 1+, Urine Urobilinogen Normal, Ur Leukocyte Esterase Negative, Urine RBC 5-10 H, Urine WBC None seen, Ur Epithelial Cells 5- 10 H, Urine Bacteria None seen, Urine Culture Comments No culture indicated 07/01/19 17:40: Urine Opiates Screen Negative, Barbiturate Screen Negative, Ur Phencyclidine Scrn Negative, Urine Amphetamine Negative, U Benzodiazepines Scrn Negative, Urine Cocaine Screen Negative, Urine Marijuana (THC) Positive H 07/02/19 07:00: WBC 16.5 H D, RBC 2.44 L, Hgb 7.5 L* D, Hct 21.2 L* D, MCV 86.9, MCH 30.7, MCHC 35.4, RDW 13.5, Plt Count 300, MPV 10.0, Immature Gran % (Auto) 0.40, Immature Gran # (Auto) 0.06 H, Neutrophils % 80.7 H, Lymphocytes % 11.8 L, Monocytes % 6.0, Eosinophils % 0.9, Basophils % 0.2, Nucleated RBC % 0.0, Neutrophils # 13.3 H, Lymphocytes # 1.95, Monocytes # 1.0, Eosinophils # 0.2, Absolute Basophils 0.0 07/02/19 07:00: Sodium 133, Plasma Sodium 136, Potassium 3.5, Chloride 97, Carbon Dioxide 28.6, Anion Gap 10.9, BUN 21, Creatinine 0.91, Est GFR (Non-Af Amer) 70 D, BUN/Creatinine Ratio 23.1 H, Random Glucose 265 H D, Calcium 7.7 L 07/02/19 07:00: Iron 19 L, TIBC 158 L, Transferrin % Sat 12 L 07/02/19 07:00: Ferritin 197, Vitamin B12 448, Folate 3.6 L 07/02/19 07:30: Blood Type O Positive, Antibody Screen Negative 07/02/19 12:40: Hgb 8.1 L, Hct 23.5 L* 07/02/19 20:00: WBC 16.6 H, RBC 2.58 L, Hgb 7.9 L*, Hct 22.8 L*, MCV 88.4, MCH 30.6, MCHC 34.6, RDW 13.6, Plt Count 308, MPV 9.1 07/03/19 06:18: WBC 13.8 H, RBC 2.51 L, Hgb 7.6 L*, Hct 22.3 L*, MCV 88.8, MCH 30.3, MCHC 34.1, RDW 13.7, Plt Count 337, MPV 9.8, Immature Gran % (Auto) 0.50 H, Immature Gran # (Auto) 0.07 H, Neutrophils % 80.4 H, Lymphocytes % 10.2 L, Monocytes % 7.9, Eosinophils % 0.9, Basophils % 0.1, Nucleated RBC % 0.0, Neutrophils # 11.1 H, Lymphocytes # 1.41 L, Monocytes # 1.1 H, Eosinophils # 0.1, Absolute Basophils 0.0 07/03/19 06:18: Sodium 133, Plasma Sodium 135, Potassium 3.7, Chloride 100, Carbon Dioxide 25.8, Anion Gap 10.9, BUN 15, Creatinine 0.88, Est GFR (Non-Af Amer) 73, BUN/Creatinine Ratio 17.0, Random Glucose 216 H, Calcium 7.7 L 07/04/19 06:55: WBC 15.0 H, RBC 2.57 L, Hgb 7.7 L*, Hct 22.7 L*, MCV 88.3, MCH 30.0, MCHC 33.9, RDW 13.6, Plt Count 309, MPV 9.3, Immature Gran % (Auto) 0.70 H, Immature Gran # (Auto) 0.10 H, Neutrophils % 79.9 H, Lymphocytes % 10.1 L, Monocytes % 8.2, Eosinophils % 1.0, Basophils % 0.1, Nucleated RBC % 0.0, Neutrophils # 12.0 H, Lymphocytes # 1.51, Monocytes # 1.2 H, Eosinophils # 0.2, Absolute Basophils 0.0 07/04/19 06:55: Sodium 134, Plasma Sodium 134, Potassium 3.7, Chloride 99, Carbon Dioxide 26.1, Anion Gap 12.6, BUN 10, Creatinine 0.93, Est GFR (Non-Af Amer) 68, BUN/Creatinine Ratio 10.8, Random Glucose 118 H D, Calcium 8.4 Discharge Location: Home Disposition: Home Health Service Home [facility] Agency: [facility] Condition: Serious Face to Face Encounter completed per CMS Guidelines: Yes Discharge Activity: Activity as tolerated Discharge Diet: Consistent carbs Referrals: Yamila Garcia MD [Primary Care Provider] - One Week Additional Patient Instructions (free text): [facility] at discharge. Fax face sheet, discharge summary, orders, and med list and call report to [phone]. Prescriptions (Any new or edited meds): Clindamycin HCl [Cleocin] 300 mg PO Q8H #21 cap Transmission Status: Pending to [place], [place] Insulin Degludec [Tresiba Flextouch U-200] 50 unit SQ HS #5 appl Transmission Status: Pending to [place], [place] Complete Home Medications List: Complete Home Medication List: Atorvastatin Calcium 40 mg PO HS 12/17/18 Omeprazole [Prilosec] 20 mg PO DAILY 12/17/18 ascorbic acid (vitamin C) 500 mg capsule 500 mg PO DAILY cap 01/20/19 multivitamin 1 tab PO DAILY 01/20/19 insulin aspart U-100 100 unit/mL (3 mL) subcutaneous pen 20 unit SUBCUT TID ml 02/05/19 alprazolam 1 mg tablet 1 mg PO TID PRN #90 tab 06/11/19 aripiprazole lauroxil 882 mg/3.2 mL suspension, ext.rel. IM syringe 882 mg IM Q6W #3.2 ml 06/11/19 dextroamphetamine-amphetamine 20 mg tablet 20 mg PO BID #60 tab 06/11/19 fluphenazine HCl 5 mg tablet 5 mg PO BID PRN #60 tab 06/11/19 fluphenazine decanoate 25 mg/mL injection solution 25 mg IM Q3W #1 ml 06/11/19 lamotrigine 200 mg tablet 200 mg PO BID #60 tab 06/11/19 suvorexant 20 mg tablet 20 mg PO HS #30 tab 06/11/19 Clindamycin HCl [Cleocin] 300 mg PO Q8H #21 cap 07/04/19 Folic Acid 1 mg PO DAILY tablet 07/04/19 Insulin Degludec [Tresiba Flextouch U-200] 50 unit SQ HS #5 appl 07/04/19
[2019-07-04 15:02] VITALS: BP 106/49
[2019-07-04] MEDS ORDERED: INSULIN GLARGINE,HUM.REC.ANLOG 100 UNITS/ML VIAL SC SCH (21:00)
== END 2019-07-04 15:30 | disposition home health service (06) | DRG 603 ==
LOC: ER 16:42 → MS 16:42
PROVIDERS: ADMIT Family Medicine; ATTEND Internal Medicine
DX: L03.115 Cellulitis of right lower limb; F90.9 Attention-deficit hyperactivity disorder, unspecified type; I10 Essential (primary) hypertension; J44.9 Chronic obstructive pulmonary disease, unspecified; D50.8 Other iron deficiency anemias; F25.9 Schizoaffective disorder, unspecified; E10.65 Type 1 diabetes mellitus with hyperglycemia; F17.210 Nicotine dependence, cigarettes, uncomplicated; L97.519 Non-pressure chronic ulcer of other part of right foot with unspecified severity
CPT/HCPCS: 36415; 73590; 73630; 74019; 74020; 80048; 80053; 80307; 81001; 82009; 82150; 82607; 82728; 82746; 83036; 83540; 83550; 83605; 83690; 84145; 85014; 85018; 85025; 85027; 86140; 86850; 87040; 93971; 96365; 96366; 96372; 96375; 96376; 99284; 99285; G0378; J2405

== ENCOUNTER 2019-07-07 12:56 | Inpatient (IN) ==
[2019-07-07] MEDS ORDERED: MORPHINE SULFATE 2 MG/ML DISP.SYRIN IV ONE (13:17)
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
[2019-07-07 13:40] LABS: Mean Corpuscular Hemoglobin 29.7 pg (27-31); Mean Corpuscular Hgb Conc 34.1 g/dl (32-36); Mean Platelet Volume 9.5 fl (8-12.5); Neutrophil % 87.1 % (42-75.0); Platelet Count 374 K/mm3 (150-450); Red Blood Count 2.39 M/mm3 (4.2-5.4)
[2019-07-07 13:44] LABS: Hematocrit 20.8 % (37.0-47.0); Hemoglobin 7.1 gm/dL (12.5-16.0)
[2019-07-07] MEDS ORDERED: NORMAL SALINE 1,000 ML IV PRN (13:45)
[2019-07-07 14:11] LABS: Albumin * 1.4 gm/dl (3.4-5.0); Anion Gap 13.4 mmol/L (6.8-13.8); BUN/Creatinine Ratio 8.7 (9.0-21.6); Bilirubin, Total 0.6 mg/dL (0.0-1.1); Ca. Corrected For Albumin 9.7 mg/dL (8.4-10.2); Calcium * 7.9 mg/dL (7.9-10.9); Carbon Dioxide 23.4 mmol/L (24-32.6); Potassium 3.8 mmol/L (3.4-4.6); Total Protein 5.9 gm/dL (6.2-8.2)
[2019-07-07] MEDS ORDERED: VANCOMYCIN HCL 1 GM in DEXTROSE 5 % IN WATER 250 ML IV ONE ×2 (14:47)
[2019-07-07] MEDS ORDERED: PIPERACILLIN SODIUM/TAZOBACTAM 3.375 GM in DEXTROSE 5 % IN WATER 100 ML IV ONE ×2 (14:53)
[2019-07-07 14:54] LABS: CRP 27.4 mg/dL (0.0-0.9)
--- NOTE | 2019-07-07 16:12 | CONS ---
[facility] - General Date of Service: 07/07/19 Narrative: Patient reports that approximately 1 to 2 weeks ago she kicked the end of the bed and had a wound open on the bottom of her foot. She was brought to the hospital admitted for IV antibiotics. Patient's white count was in the 20,000's at this time, after a week of IV antibiotics it reduced around 13,000, patient was then transition to oral antibiotics. Since then she notes her pain and symptoms have returned as well as significant erythema on the bottom of her foot. They have been performing dressing changes with dry gauze. Today upon presentation her white count is again in the 20,000's, so she is failed outpatient oral antibiotics. Patient does have significant wounds on the bottom of her foot. Note patient has a chronic history of significant uncontrolled diabetes as well as significant edema distally. Source: patient, other - ER provider Exam Limitations: no limitations - History of Present Illness Allergies/Adverse Reactions: Allergies asenapine maleate [From Saphris] Allergy (Intermediate, Verified 06/20/19 20:01) Hives metformin [From Glucophage] Allergy (Intermediate, Verified 06/20/19 20:01) generalized swelling, rash asenapine [From Saphris] Adverse Reaction (Severe, Verified 06/20/19 20:01) skin crawling and twitching clozapine [From Clozaril] Adverse Reaction (Severe, Verified 06/20/19 20:01) suicidal and homicidal ideations, rash Tetanus Vaccines and Toxoid [Tetanus] Adverse Reaction (Mild, Verified 06/20/19 20:01) bloated Home Medications: Home Medications Medication Instructions Recorded Last Taken Atorvastatin Calcium 40 mg PO HS 12/17/18 03/24/19 Omeprazole [Prilosec] 20 mg PO DAILY 12/17/18 03/24/19 ascorbic acid (vitamin C) 500 mg 500 mg PO DAILY cap 01/20/19 03/24/19 capsule multivitamin 1 tab PO DAILY 01/20/19 03/24/19 insulin aspart U-100 100 unit/mL 20 unit SUBCUT TID ml 02/05/19 03/24/19 (3 mL) subcutaneous pen alprazolam 1 mg tablet 1 mg PO TID PRN #90 tab 06/11/19 Unknown aripiprazole lauroxil 882 mg/3.2 882 mg IM Q6W #3.2 ml 06/11/19 Unknown mL suspension, ext.rel. IM syringe dextroamphetamine-amphetamine 20 20 mg PO BID #60 tab 06/11/19 Unknown mg tablet fluphenazine HCl 5 mg tablet 5 mg PO BID PRN #60 tab 06/11/19 Unknown fluphenazine decanoate 25 mg/mL 25 mg IM Q3W #1 ml 06/11/19 Unknown injection solution lamotrigine 200 mg tablet 200 mg PO BID #60 tab 06/11/19 Unknown suvorexant 20 mg tablet 20 mg PO HS #30 tab 06/11/19 Unknown Folic Acid 1 mg PO DAILY tab 07/04/19 Unknown Insulin Degludec [Tresiba 50 unit SQ HS #5 appl 07/04/19 Unknown Flextouch U-200] clindamycin HCl 150 mg capsule 300 mg PO Q8H #42 cap 07/07/19 Unknown Procedures Injection of anesthetic into spinal canal for analgesia (06/08/10) Injection of other agent into spinal canal (06/08/10) Injection of steroid (06/08/10) Insertion of other (naso-)gastric tube (06/23/07) Physical Examination - Exam Vital Signs: Vital Signs - Last Taken Temp 36.6 C 07/07/19 13:00 Pulse 90 07/07/19 15:15 Resp 20 07/07/19 15:15 BP 108/52 07/07/19 15:15 Pulse Ox 99 07/07/19 15:15 O2 Oxygen Delivery Method Room Air Constitutional: Present: Alert, Cooperative, No distress Respiratory: Present: no respiratory distress Extremity: Present: other - RLE--> patient has a approximately 2 x 4 cm region on the plantar surface of her foot with significant excoriated skin and open wound with erythema diffusely around this region Eye contact: Present: cooperative - Results and Findings: Lab/Microbiology results last 24 hrs: Abnormal/Pending Laboratory Last 24 HRS 07/07/19 07/07/19 13:36 13:36 WBC 23.0 H RBC 2.39 L Hgb 7.1 L* Hct 20.8 L* Immature Gran % (Auto) 1.50 H Immature Gran # (Auto) 0.35 H Neutrophils % 87.1 H Lymphocytes % 5.1 L Neutrophils # 20.0 H Lymphocytes # 1.16 L Monocytes # 1.4 H Sodium 128 L Chloride 95 L Carbon Dioxide 23.4 L Est GFR (Non-Af Amer) 48 L D BUN/Creatinine Ratio 8.7 L Random Glucose 275 H ALT 10 L C-Reactive Prot, Quant 27.4 H B-Natriuretic Peptide 2878 H Total Protein 5.9 L Albumin 1.4 L - Assessments/Findings (1) Cellulitis and abscess of foot excluding toe Problem: Acute Plan - Plan Plan: -48-year-old female brought to the ER today for worsening right foot wound. After examination evaluation, patient previously had significant IV antibiotics while in the hospital, few days ago she was discharged and transition to p.o. antibiotics, note that this course of treatment is failed, white count has returned to a significant elevated status. Patient appears to be failing outpatient p.o. antibiotic treatment. Discussed with the ER that patient would need an MRI to further evaluate underlying soft tissues and possible involvement with this infection. Patient could undergo a significant debridement, however due to patient's hyperglycemia and significant edema these would definitely raise risk of complications. Concern for further complications with this foot wound. Recommend obtaining an MRI and beginning IV antibiotics to contain the infection and improve patient's symptoms. As well as begin managing her comorbid problems. Patient will be admitted to medicine for further treatment. Will monitor for MRI results, further recommendations once comorbid conditions have been treated.
[2019-07-07] MEDS ORDERED: FLUPHENAZINE HCL 5 MG TABLET PO PRN (18:13)
[2019-07-07] MEDS ORDERED: NORMAL SALINE 1,000 ML IV ONE (18:40)
[2019-07-07] MEDS ORDERED: VANCOMYCIN HCL 1 GM in DEXTROSE 5 % IN WATER 250 ML IV SCH ×2 (18:45)
[2019-07-07] MEDS: FAMOTIDINE 20 MG in DEXTROSE 5 % IN WATER 100 ML IV SCH ×2 (19:23)
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
[2019-07-07] MEDS ORDERED: INSULIN GLARGINE,HUM.REC.ANLOG 100 UNITS/ML VIAL SC SCH (21:00)
[2019-07-07] MEDS: INSULIN ASPART 100 UNITS/ML VIAL SC SCH (21:18)
[2019-07-07] MEDS: lamoTRIgine 100 MG TABLET PO SCH (21:18)
[2019-07-07] MEDS ORDERED: ROSUVASTATIN CALCIUM 10 MG TABLET ONE (21:23)
[2019-07-07] MEDS: ROSUVASTATIN CALCIUM 20 MG TABLET PO SCH (21:24)
[2019-07-07] MEDS: INSULIN REGULAR, HUMAN 100 UNITS/ML VIAL SC SCH (21:25)
[2019-07-08] MEDS: ACETAMINOPHEN 325 MG TABLET PO PRN ×2 (00:12→18:48)
[2019-07-08] MEDS: PIPERACILLIN SODIUM/TAZOBACTAM 3.375 GM in DEXTROSE 5 % IN WATER 100 ML IV SCH ×6 (01:24→16:46)
[2019-07-08] MEDS: MEPERIDINE HCL/PF 50 MG/ML SYRG IV PRN ×2 (02:17→18:50)
[2019-07-08] MEDS: VANCOMYCIN HCL 1.5 GM in NORMAL SALINE 500 ML IV SCH ×2 (03:31→16:39)
[2019-07-08 06:37] LABS: Mean Cell Volume 87.4 fl (78-100); Mean Corpuscular Hemoglobin 29.1 pg (27-31); Mean Corpuscular Hgb Conc 33.3 g/dl (32-36); Mean Platelet Volume 9.6 fl (8-12.5); Neutrophil # 19.6 K/mm3 (1.3-6.0); Neutrophil % 86.6 % (42-75.0); Platelet Count 421 K/mm3 (150-450); Red Blood Count 2.54 M/mm3 (4.2-5.4); Red Cell Distribution Width 14.3 % (11.5-14.0); White Blood Count 22.7 K/mm3 (4.0-10.5)
[2019-07-08] MEDS ORDERED: NORMAL SALINE 1,000 ML IV ONE (06:42)
[2019-07-08 06:55] LABS: Albumin * 1.3 gm/dl (3.4-5.0); Anion Gap 11.8 mmol/L (6.8-13.8); BUN/Creatinine Ratio 10.7 (9.0-21.6); Bilirubin, Total 0.4 mg/dL (0.0-1.1); Ca. Corrected For Albumin 9.5 mg/dL (8.4-10.2); Calcium * 7.7 mg/dL (7.9-10.9); Carbon Dioxide 24.2 mmol/L (24-32.6); Total Protein 5.9 gm/dL (6.2-8.2)
[2019-07-08] MEDS: FAMOTIDINE 20 MG in DEXTROSE 5 % IN WATER 100 ML IV SCH ×4 (07:12→20:00)
[2019-07-08 07:15] LABS: Hemoglobin 7.4 gm/dL (12.5-16.0)
[2019-07-08 07:16] LABS: Hematocrit 22.2 % (37.0-47.0)
[2019-07-08] MEDS: Suvorexant [Belsomra] 20 MG PO SCH ×2 (08:18→20:40)
[2019-07-08] MEDS: INSULIN ASPART 100 UNITS/ML VIAL SC SCH (08:19)
[2019-07-08] MEDS: INSULIN LISPRO 100 UNITS/ML VIAL SC SCH ×4 (08:29→20:49)
[2019-07-08] MEDS: INSULIN REGULAR, HUMAN 100 UNITS/ML VIAL SC SCH ×4 (08:30→20:48)
[2019-07-08] MEDS: lamoTRIgine 100 MG TABLET PO SCH ×2 (08:32→20:43)
[2019-07-08] MEDS: MULTIVITAMINS 1 CAP CAPSULE PO SCH (08:32)
[2019-07-08] MEDS: DOCUSATE SODIUM 100 MG CAPSULE PO SCH (08:32)
[2019-07-08] MEDS: FOLIC ACID 1 MG TABLET PO SCH (08:32)
[2019-07-08] MEDS: ASCORBIC ACID 500 MG TABLET PO SCH (08:32)
--- NOTE | 2019-07-08 08:32 | PN ---
Subjective - Date and Time Seen Date: 07/08/19 Time: 08:18 Subjective Narrative: No events overnight. Vitals stable, no signs of sepsis or systemic infection. Denies pain. Objective - Vitals Vitals: Last Vital Signs Temp 36.3 C 07/08/19 07:00 Pulse 100 07/08/19 07:00 Resp 19 07/08/19 07:00 BP 132/61 07/08/19 07:00 Pulse Ox 97 07/08/19 07:00 - Abnormal Lab Findings Abnormal Lab Findings: Abnormal Lab Results 07/07/19 07/07/19 07/08/19 Range/Units 13:36 13:36 06:32 WBC 23.0 H 22.7 H (4.0-10.5) K/mm3 RBC 2.39 L 2.54 L (4.2-5.4) M/mm3 Hgb 7.1 L* 7.4 L* (12.5-16.0) gm/dL Hct 20.8 L* 22.2 L* (37.0-47.0) % RDW 14.3 H (11.5-14.0) % Immature Gran % (Auto) 1.50 H 1.40 H (0.001-0.429) % Immature Gran # (Auto) 0.35 H 0.32 H (0.000-0.0310) K/mm3 Neutrophils % 87.1 H 86.6 H (42-75.0) % Lymphocytes % 5.1 L 5.9 L (20-51) % Neutrophils # 20.0 H 19.6 H (1.3-6.0) K/mm3 Lymphocytes # 1.16 L 1.34 L (1.5-3.5) k/mm3 Monocytes # 1.4 H 1.3 H (0.0-1.0) k/mm3 Sodium 128 L (132-142) mmol/L Chloride 95 L (97-106) mmol/L Carbon Dioxide 23.4 L (24-32.6) mmol/L Est GFR (Non-Af Amer) 48 L D (60-130) mL/min BUN/Creatinine Ratio 8.7 L (9.0-21.6) Random Glucose 275 H (70-110) mg/dL Calcium (7.9-10.9) mg/dL ALT 10 L (19-67) U/L C-Reactive Prot, Quant 27.4 H (0.0-0.9) mg/dL B-Natriuretic Peptide 2878 H (5-150) pg/mL Total Protein 5.9 L (6.2-8.2) gm/dL Albumin 1.4 L (3.4-5.0) gm/dl 07/08/19 Range/Units 06:32 WBC (4.0-10.5) K/mm3 RBC (4.2-5.4) M/mm3 Hgb (12.5-16.0) gm/dL Hct (37.0-47.0) % RDW (11.5-14.0) % Immature Gran % (Auto) (0.001-0.429) % Immature Gran # (Auto) (0.000-0.0310) K/mm3 Neutrophils % (42-75.0) % Lymphocytes % (20-51) % Neutrophils # (1.3-6.0) K/mm3 Lymphocytes # (1.5-3.5) k/mm3 Monocytes # (0.0-1.0) k/mm3 Sodium 130 L (132-142) mmol/L Chloride (97-106) mmol/L Carbon Dioxide (24-32.6) mmol/L Est GFR (Non-Af Amer) 55 L (60-130) mL/min BUN/Creatinine Ratio (9.0-21.6) Random Glucose 198 H (70-110) mg/dL Calcium 7.7 L (7.9-10.9) mg/dL ALT 9 L (19-67) U/L C-Reactive Prot, Quant (0.0-0.9) mg/dL B-Natriuretic Peptide (5-150) pg/mL Total Protein 5.9 L (6.2-8.2) gm/dL Albumin 1.3 L (3.4-5.0) gm/dl - Exam Exam Narrative: Gen: alert and oriented to person, place, and time Resp: breathing non-labored on room air CV: RRR MSK: Full thickness eschar over planter aspect of forefoot with purulent drainage centrally, foul smelling, consistent with developing wet gangrene, mild surround erythema, pitting edema of foot and lower leg with mild erythema and warmth Radiology: MRI reviewed which demonstrates full thickness ulceration and soft tissue infection of plantar aspect of forefoot, no definable abscess, no evidence of osteomyelitis Assessment/Plan - Problems/Diagnosis (1) Diabetic foot infection Problem: Acute (2) Ulcer of foot Problem: Acute Qualifiers: Laterality: right Non-pressure ulcer stage: unspecified non-pressure ulcer stage Qualified Code(s): L97.519 - Non-pressure chronic ulcer of other part of right foot with unspecified severity Narrative: 48 yo F uncontrolled diabetic with deep infection of right plantar forefoot. -I counseled the patient extensively today on her foot infection and options for treatment. I discussed the option of continue non-operative management with IV antibiotics and wound care vs amputation. Given her poorly controlled diabetes and extent of her infection, I counseled her that I think there is a very low chance of success with non-operative management. Surgical debridement is not a viable option given the location of the wound and no soft tissue coverage options. The most definitive option to clear her infection, give her a wound that will heal and allow her to remain ambulatory would be a below knee amputation. She is not currently systemically ill, but I counseled her that this infection is serious and has a chance of becoming systemic and even life threatening without surgical intervention. At this point in time, there is not an emergent/urgent need for amputation, but this could change quickly. She expressed understanding of her options and, after discussion, wants some time to think about it. I counseled her to let nursing staff know as soon as she makes a decision. I also counseled her that if she becomes systemically ill, we would need to proceed with amputation urgently, and she understands this. -Ok to eat today, plan to make NPO again tonight for possible procedure in the morning. -Continue IV Vanc/Zosyn -Continue close monitoring of vitals and labs. -Will reassess patient in the morning.
--- NOTE | 2019-07-08 08:35 | PN ---
Subjective - Date and Time Seen Date: 07/08/19 Time: 08:27 Subjective Narrative: Patient is doing well, no acute events overnight. She notes mild discomfort of her foot. She has no other significant symptoms currently. She is tolerating IV antibiotics without complication currently. Objective - Vitals Vitals: Last Vital Signs Temp 36.3 C 07/08/19 07:00 Pulse 100 07/08/19 07:00 Resp 19 07/08/19 07:00 BP 132/61 07/08/19 07:00 Pulse Ox 97 07/08/19 07:00 - Abnormal Lab Findings Abnormal Lab Findings: Abnormal Lab Results 07/07/19 07/07/19 07/08/19 Range/Units 13:36 13:36 06:32 WBC 23.0 H 22.7 H (4.0-10.5) K/mm3 RBC 2.39 L 2.54 L (4.2-5.4) M/mm3 Hgb 7.1 L* 7.4 L* (12.5-16.0) gm/dL Hct 20.8 L* 22.2 L* (37.0-47.0) % RDW 14.3 H (11.5-14.0) % Immature Gran % (Auto) 1.50 H 1.40 H (0.001-0.429) % Immature Gran # (Auto) 0.35 H 0.32 H (0.000-0.0310) K/mm3 Neutrophils % 87.1 H 86.6 H (42-75.0) % Lymphocytes % 5.1 L 5.9 L (20-51) % Neutrophils # 20.0 H 19.6 H (1.3-6.0) K/mm3 Lymphocytes # 1.16 L 1.34 L (1.5-3.5) k/mm3 Monocytes # 1.4 H 1.3 H (0.0-1.0) k/mm3 Sodium 128 L (132-142) mmol/L Chloride 95 L (97-106) mmol/L Carbon Dioxide 23.4 L (24-32.6) mmol/L Est GFR (Non-Af Amer) 48 L D (60-130) mL/min BUN/Creatinine Ratio 8.7 L (9.0-21.6) Random Glucose 275 H (70-110) mg/dL Calcium (7.9-10.9) mg/dL ALT 10 L (19-67) U/L C-Reactive Prot, Quant 27.4 H (0.0-0.9) mg/dL B-Natriuretic Peptide 2878 H (5-150) pg/mL Total Protein 5.9 L (6.2-8.2) gm/dL Albumin 1.4 L (3.4-5.0) gm/dl 07/08/19 Range/Units 06:32 WBC (4.0-10.5) K/mm3 RBC (4.2-5.4) M/mm3 Hgb (12.5-16.0) gm/dL Hct (37.0-47.0) % RDW (11.5-14.0) % Immature Gran % (Auto) (0.001-0.429) % Immature Gran # (Auto) (0.000-0.0310) K/mm3 Neutrophils % (42-75.0) % Lymphocytes % (20-51) % Neutrophils # (1.3-6.0) K/mm3 Lymphocytes # (1.5-3.5) k/mm3 Monocytes # (0.0-1.0) k/mm3 Sodium 130 L (132-142) mmol/L Chloride (97-106) mmol/L Carbon Dioxide (24-32.6) mmol/L Est GFR (Non-Af Amer) 55 L (60-130) mL/min BUN/Creatinine Ratio (9.0-21.6) Random Glucose 198 H (70-110) mg/dL Calcium 7.7 L (7.9-10.9) mg/dL ALT 9 L (19-67) U/L C-Reactive Prot, Quant (0.0-0.9) mg/dL B-Natriuretic Peptide (5-150) pg/mL Total Protein 5.9 L (6.2-8.2) gm/dL Albumin 1.3 L (3.4-5.0) gm/dl - Exam Constitutional: Present: Alert, Oriented x3, Cooperative, No distress Respiratory: Present: no respiratory distress Extremity: Present: other - RLE--> bandages have mild drainage, diffuse mild erythema about plantar surface of midfoot diffuse throughout ankle, decreased sensation about wound, mild sensation in toes, distal capillary refill brisk, diffuse pitting edema throughout foot and ankle, wound 3x4 cm diffuse sluffing skin Appearance: Present: appropriate appearance Eye contact: Present: cooperative Thoughts: Present: normal thought pattern Assessment/Plan Plan Narrative: -48 y/o female admitted for right foot wound and surrounding cellulitis, previously underwent admission with IV antibiotics, she was transitioned to PO once she was clinically improving. After 3 days at home returned to ER. She was admitted to medicine and underwent an MRI this revealed a deep infection. Based on results Dr. Moreira discussed treatment options and further care including wound care treatment vs. BKA. Discussed possible outcomes and alternative treatments as well as risk vs. benefits and possible continued care that may be needed. Patient is not acutely ill systemically at this point, can continue to monitor while stable, if significant changes will re-evaluate treatment. She has been counseled in detail and understands options at this time. Will continue to monitor infection and wound. Medicine can continue to monitor chronic medical conditions as well. Will f/u with patient and once she makes a decision on treatment or acute changes occur proceed with appropriate treatment options. - Problems/Diagnosis (1) Cellulitis and abscess of foot excluding toe Problem: Acute
--- NOTE | 2019-07-08 10:05 | PN ---
Subjective - Date and Time Seen Date: 07/08/19 Time: 09:58 Subjective Narrative: My pain is better controlled, I have decided to get amputation to prevent more complications. Objective Objective Narrative: 48-year-old female admitted for necrotizing fasciitis of her right foot and uncontrolled diabetes was evaluated at bedside was found to be afebrile and in no acute distress. Patient was left n.p.o. after midnight with the intention of taking her to the OR for debridement of her diabetic ulcer, however after evaluating imaging and the patient at bedside the orthopedic surgeon suggests a below the knee amputation instead given the ulcers the patient. The treatment options were explained to patient she was made aware of the risk of a systemic severe infection that can threaten her life and she has now decided to proceed with a below the knee amputation in the morning. Ortho team has been notified we will await further instructions from them. For now follow-up labs have been ordered for tomorrow morning and n.p.o. orders after midnight were placed to prepare her for the OR in the morning. Patient's blood sugars have improved but is still not adequately controlled, therefore her insulin therapy was increased, will continue to monitor. - Review of Systems Generalized/Overall Review: Reports: No Symptoms Reported EENTM: Reports: No Symptoms Reported Respiratory: Reports: No Symptoms Reported Cardiac: Reports: No Symptoms Reported Abdominal: Reports: No Symptoms Reported Genitourinary Symptoms: Reports: No Symptoms Reported Musculoskeletal Complaints: Reports: Other - Right foot pain Neurological: Reports: No Symptoms Reported Skin: Reports: No Symptoms Reported Endocrine: Reports: No Symptoms Reported - Vitals Vitals: Last Vital Signs Temp 36.3 C 07/08/19 07:00 Pulse 100 07/08/19 07:00 Resp 19 07/08/19 07:00 BP 132/61 07/08/19 07:00 Pulse Ox 97 07/08/19 07:00 - Abnormal Lab Findings Abnormal Lab Findings: Abnormal Lab Results 07/07/19 07/07/19 07/08/19 Range/Units 13:36 13:36 06:32 WBC 23.0 H 22.7 H (4.0-10.5) K/mm3 RBC 2.39 L 2.54 L (4.2-5.4) M/mm3 Hgb 7.1 L* 7.4 L* (12.5-16.0) gm/dL Hct 20.8 L* 22.2 L* (37.0-47.0) % RDW 14.3 H (11.5-14.0) % Immature Gran % (Auto) 1.50 H 1.40 H (0.001-0.429) % Immature Gran # (Auto) 0.35 H 0.32 H (0.000-0.0310) K/mm3 Neutrophils % 87.1 H 86.6 H (42-75.0) % Lymphocytes % 5.1 L 5.9 L (20-51) % Neutrophils # 20.0 H 19.6 H (1.3-6.0) K/mm3 Lymphocytes # 1.16 L 1.34 L (1.5-3.5) k/mm3 Monocytes # 1.4 H 1.3 H (0.0-1.0) k/mm3 Sodium 128 L (132-142) mmol/L Chloride 95 L (97-106) mmol/L Carbon Dioxide 23.4 L (24-32.6) mmol/L Est GFR (Non-Af Amer) 48 L D (60-130) mL/min BUN/Creatinine Ratio 8.7 L (9.0-21.6) Random Glucose 275 H (70-110) mg/dL Calcium (7.9-10.9) mg/dL ALT 10 L (19-67) U/L C-Reactive Prot, Quant 27.4 H (0.0-0.9) mg/dL B-Natriuretic Peptide 2878 H (5-150) pg/mL Total Protein 5.9 L (6.2-8.2) gm/dL Albumin 1.4 L (3.4-5.0) gm/dl 07/08/19 Range/Units 06:32 WBC (4.0-10.5) K/mm3 RBC (4.2-5.4) M/mm3 Hgb (12.5-16.0) gm/dL Hct (37.0-47.0) % RDW (11.5-14.0) % Immature Gran % (Auto) (0.001-0.429) % Immature Gran # (Auto) (0.000-0.0310) K/mm3 Neutrophils % (42-75.0) % Lymphocytes % (20-51) % Neutrophils # (1.3-6.0) K/mm3 Lymphocytes # (1.5-3.5) k/mm3 Monocytes # (0.0-1.0) k/mm3 Sodium 130 L (132-142) mmol/L Chloride (97-106) mmol/L Carbon Dioxide (24-32.6) mmol/L Est GFR (Non-Af Amer) 55 L (60-130) mL/min BUN/Creatinine Ratio (9.0-21.6) Random Glucose 198 H (70-110) mg/dL Calcium 7.7 L (7.9-10.9) mg/dL ALT 9 L (19-67) U/L C-Reactive Prot, Quant (0.0-0.9) mg/dL B-Natriuretic Peptide (5-150) pg/mL Total Protein 5.9 L (6.2-8.2) gm/dL Albumin 1.3 L (3.4-5.0) gm/dl - Exam Constitutional: Present: Alert, Oriented x3, Cooperative, Well developed, Well nourished, No distress, Obese, Morbidly obese ENT Exam: Present: normal ENT inspection, hearing grossly normal, pharynx normal, TMs normal Neck: Present: non-tender, full range of motion, supple, normal inspection, trachea midline Breasts: Present: Exam deferred Respiratory: Present: chest non-tender, lungs clear, normal breath sounds, no respiratory distress, no accessory muscle use Cardiovascular/Chest: Present: normal peripheral pulses, regular rate, rhythm, no chest tenderness, no edema, no gallop, no JVD, no murmur, no rub Abdomen: Present: Normal bowel sounds, soft, nontender, nondistended, no rebound tenderness, no hepatospenomegaly, obese /Rectal: Present: Exam deferred Extremity: Present: normal range of motion, no calf tenderness, normal capillary refill, other - Malodorous drainage ulcer on plantar surface of right foot Skin Exam: Present: normal color, warm/dry, no cyanosis Lymphatic: Present: no adenopathy Neurologic: Present: 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 after midnight, follow-up labs have been ordered for tomorrow morning to continue monitoring hemoglobin. Possibility of transfusion of PRBCs for anemia will be discussed with Ortho team. We will continue to monitor patient. - Problems/Diagnosis (1) Plantar fasciitis of right foot Problem: Acute (2) Uncontrolled diabetes mellitus Problem: Chronic Qualifiers: Diabetes mellitus type: type 2 (3) Hyponatremia Problem: Acute (4) Anemia Problem: Acute (5) Diabetic neuropathy Problem: Chronic Qualifiers: Diabetes mellitus type: type 2 Diabetes mellitus complication detail: diabetic polyneuropathy Qualified Code(s): E11.42 - Type 2 diabetes mellitus with diabetic polyneuropathy (6) Leukocytosis Problem: Acute
--- NOTE | 2019-07-08 10:38 | PN ---
Radha Note - Interim Date: 07/08/19 Time: 10:36 Narrative: Patient has discussed with her family and decided to proceed with a below-knee amputation. Consent has been obtained, discussed risk first benefits with patient and further treatment options. Note patient was allowed to proceed with diet this morning, due to this lengthy meeting the time prior to anesthetic plan to proceed with surgical intervention on 07/09/2018. Patient will undergo a right below-knee amputation. Patient has been marked prior to surgery. Patient expressed understanding agreed with this treatment plan. We will continue to monitor for acute changes, if any significant acute worsening we will proceed with emergent below-knee amputation. Patient currently still remained stable without any acute changes in her symptoms. 07/08/19 10:36
--- NOTE | 2019-07-08 13:37 | ANES ---
Anesthesia Pre Procedure Eval Vitals/Labs: Last Vital Signs Temp 37.4 C 07/08/19 10:14 Pulse 105 H 07/08/19 10:14 Resp 12 07/08/19 10:14 BP 120/53 07/08/19 10:14 Pulse Ox 99 07/08/19 10:14 HOME MEDICATIONS Atorvastatin Calcium 40 mg PO HS 12/17/18 [Last Taken 03/24/19] Omeprazole [Prilosec] 20 mg PO DAILY 12/17/18 [Last Taken 03/24/19] ascorbic acid (vitamin C) 500 mg capsule 500 mg PO DAILY cap 01/20/19 [Last Taken 03/24/19] multivitamin 1 tab PO DAILY 01/20/19 [Last Taken 03/24/19] insulin aspart U-100 100 unit/mL (3 mL) subcutaneous pen 20 unit SUBCUT TID ml 02/05/19 [Last Taken 03/24/19] alprazolam 1 mg tablet 1 mg PO TID PRN #90 tab 06/11/19 [Last Taken Unknown] aripiprazole lauroxil 882 mg/3.2 mL suspension, ext.rel. IM syringe 882 mg IM Q6W #3.2 ml 06/11/19 [Last Taken Unknown] dextroamphetamine-amphetamine 20 mg tablet 20 mg PO BID #60 tab 06/11/19 [Last Taken Unknown] fluphenazine HCl 5 mg tablet 5 mg PO BID PRN #60 tab 06/11/19 [Last Taken Unknown] fluphenazine decanoate 25 mg/mL injection solution 25 mg IM Q3W #1 ml 06/11/19 [Last Taken Unknown] lamotrigine 200 mg tablet 200 mg PO BID #60 tab 06/11/19 [Last Taken Unknown] suvorexant 20 mg tablet 20 mg PO HS #30 tab 06/11/19 [Last Taken Unknown] Folic Acid 1 mg PO DAILY tab 07/04/19 [Last Taken Unknown] Insulin Degludec [Tresiba Flextouch U-200] 50 unit SQ HS #5 appl 07/04/19 [Last Taken Unknown] clindamycin HCl 150 mg capsule 300 mg PO Q8H #42 cap 07/07/19 [Last Taken Unknown] Allergies/Adverse Reactions: Allergies Allergy/AdvReac Type Severity Reaction Status Date / Time asenapine maleate Allergy Intermediate Hives Verified 07/07/19 16:28 [From Saphris] metformin [From Glucophage] Allergy Intermediate generalized Verified 07/07/19 16:28 swelling, rash asenapine [From Saphris] AdvReac Severe skin Verified 07/07/19 16:28 crawling and twitching clozapine [From Clozaril] AdvReac Severe suicidal Verified 07/07/19 16:28 and homicidal ideations, rash Tetanus Vaccines and Toxoid AdvReac Mild bloated Verified 07/07/19 16:28 [Tetanus] - Planned Procedure Planned Procedure: Right foot cellulitis, anemia, hyponatremia Medication List Reviewed:: Yes Allergies Verified: Yes Medical History (Last Reviewed 07/08/19 @ 13:29 by Valentino Fernandez CRNA) Insomnia due to mental disorder (Chronic) Medial meniscus tear (Acute) ACL (anterior cruciate ligament) tear (Acute) Left knee pain (Chronic) COPD (chronic obstructive pulmonary disease) (Chronic) Bronchial asthma (Chronic) Schizoaffective disorder (Chronic) Borderline personality disorder (Chronic) Attention deficit disorder of adult with hyperactivity (Chronic) Hypertension Left knee pain Onset Date: Unknown Uses walker ADHD (attention deficit hyperactivity disorder) Borderline personality disorder Chronic headaches Degenerative disc disease lumbar Diabetes mellitus Fatigue due to depression GERD (gastroesophageal reflux disease) Generalized anxiety disorder Hyperlipidemia Hypersomnia Schizoaffective disorder, bipolar type Seasonal allergic rhinitis Alcoholism Surgical History (Last Reviewed 07/08/19 @ 13:29 by Valentino Fernandez CRNA) S/P left knee arthroscopy (Acute) Medial meniscectomy H/O arthroscopy of left knee Onset Date: 03/25/19 Left knee arthroscopy with partial medial meniscectomy-Dr. Moreira History of esophagogastroduodenoscopy (EGD) Onset Date: 02/10/19 02/10/19 [place]-clotest negative, retained food in esophagus, distal esophageal stricture, inflammation. History of surgery on wrist Onset Date: ~1977 right History of tonsillectomy and adenoidectomy Onset Date: ~1976 S/P epidural steroid injection Onset Date: ~2009 [id number], L4-5, L5-S1 Family History (Last Reviewed 07/08/19 @ 13:29 by Valentino Fernandez CRNA) Grandmother Diabetes maternal and paternal Heart disease maternal Cancer paternal-breast ca Mother Diabetes CHF (congestive heart failure) Hypertension Dementia Cancer vaginal Father , age 70-bladder cancer Bladder neoplasm - Family Anesthesia History Family History:: no untoward family reactions to anesthesia, no familial bleeding tendencies, no family history of clotting disorders, no family history of premature - Airway/Neck/Teeth Teeth Condition: none Denture Type: None Neck Exam: full range of motion Mallampatti Score: 2 Thyromental (T-M) distance: > 6 cm Mandibulo Hyoid distance: > 3 cm - Respiratory Respiratory Physical: lungs clear Smoking Status: Current every day smoker - 0.5ppd Discussed smoking cessation including day of surgery: Yes Sleep Apnea currently treated: No Sleep Apnea by current assessment: No - some symptoms, not strong. - Cardiovascular Cardiac History: hyperlipidemia Tolerate Activity: Poor Heart Sounds: S1 & S2, Regular - Anesthesia Assessment and Plan ASA Class: PS, III Anesthesia Type Plan: Spinal
[2019-07-08] MEDS: ROSUVASTATIN CALCIUM 20 MG TABLET PO SCH (20:42)
[2019-07-08] MEDS: INSULIN GLARGINE,HUM.REC.ANLOG 100 UNITS/ML VIAL SC SCH (20:55)
[2019-07-09] MEDS ORDERED: NORMAL SALINE 1,000 ML IV ONE (00:01)
[2019-07-09] MEDS: PIPERACILLIN SODIUM/TAZOBACTAM 3.375 GM in DEXTROSE 5 % IN WATER 100 ML IV SCH ×6 (00:59→21:41)
[2019-07-09] MEDS: MEPERIDINE HCL/PF 50 MG/ML SYRG IV PRN ×2 (01:00→07:35)
[2019-07-09] MEDS: VANCOMYCIN HCL 1.5 GM in NORMAL SALINE 500 ML IV SCH ×2 (04:42→17:02)
[2019-07-09 06:43] LABS: Mean Cell Volume 87.1 fl (78-100); Mean Corpuscular Hemoglobin 29.7 pg (27-31); Mean Corpuscular Hgb Conc 34.1 g/dl (32-36); Mean Platelet Volume 9.6 fl (8-12.5); Neutrophil % 85.7 % (42-75.0); Platelet Count 340 K/mm3 (150-450); Red Blood Count 2.02 M/mm3 (4.2-5.4); Red Cell Distribution Width 14.4 % (11.5-14.0); White Blood Count 18.7 K/mm3 (4.0-10.5)
[2019-07-09 06:49] LABS: Anion Gap 11.3 mmol/L (6.8-13.8); BUN/Creatinine Ratio 12.9 (9.0-21.6); Bilirubin, Total 0.3 mg/dL (0.0-1.1); Ca. Corrected For Albumin 9.5 mg/dL (8.4-10.2); Calcium * 7.4 mg/dL (7.9-10.9); Carbon Dioxide 23.5 mmol/L (24-32.6); Potassium 3.8 mmol/L (3.4-4.6); Total Protein 5.3 gm/dL (6.2-8.2)
[2019-07-09 07:33] LABS: Hematocrit 17.6 % (37.0-47.0)
[2019-07-09] MEDS ORDERED: FUROSEMIDE 10 MG/ML VIAL IV PRN (07:50)
[2019-07-09] MEDS ORDERED: MIDAZOLAM HCL/PF 5 MG/ML VIAL ONE (07:55)
[2019-07-09] MEDS ORDERED: SUCCINYLCHOLINE CHLORIDE 20 MG/ML VIAL ONE (07:56)
[2019-07-09] MEDS ORDERED: ONDANSETRON HCL/PF 2 MG/ML VIAL ONE (07:56)
[2019-07-09] MEDS ORDERED: PROPOFOL VIAL IV ONE (07:56)
[2019-07-09] MEDS ORDERED: PHENYLEPHRINE HCL 10 MG/ML AMPUL ONE (08:04)
[2019-07-09] MEDS: FAMOTIDINE 20 MG in DEXTROSE 5 % IN WATER 100 ML IV SCH ×2 (08:05)
[2019-07-09] MEDS: INSULIN REGULAR, HUMAN 100 UNITS/ML VIAL SC SCH ×4 (08:10→21:51)
[2019-07-09] MEDS: INSULIN LISPRO 100 UNITS/ML VIAL SC SCH ×4 (08:10→21:51)
[2019-07-09] MEDS ORDERED: LIDOCAINE HCL 50 ML VIAL IJ ONE (09:25)
[2019-07-09] MEDS ORDERED: MORPHINE SULFATE 2 MG/ML DISP.SYRIN IV PRN (11:11)
[2019-07-09] MEDS ORDERED: ACETAMINOPHEN 500 MG TABLET PO PRN (11:11)
[2019-07-09] MEDS ORDERED: MAG HYDROX/ALUMINUM HYD/SIMETH 30 ML UDC PO PRN (11:11)
[2019-07-09] MEDS ORDERED: ONDANSETRON HCL/PF 2 MG/ML VIAL IV PRN (11:11)
[2019-07-09] MEDS ORDERED: MAGNESIUM HYDROXIDE 30 ML UDC PO PRN (11:11)
[2019-07-09] MEDS ORDERED: oxyCODONE HCL/ACETAMINOPHEN 1 TAB TABLET PO PRN (11:11)
--- NOTE | 2019-07-09 11:15 | PN ---
Subjective - Date and Time Seen Date: 07/09/19 Time: 08:00 Subjective Narrative: Patient reports no acute events. She still is feeling well, mildly fatigued. She states she is ready to proceed with the surgery. She notes no significant changes in systemic symptoms or pain. Objective - Vitals Vitals: Last Vital Signs Temp 36.6 C 07/09/19 10:55 Pulse 81 07/09/19 10:55 Resp 18 07/09/19 10:55 BP 109/65 07/09/19 10:55 Pulse Ox 100 07/09/19 10:55 - Abnormal Lab Findings Abnormal Lab Findings: Abnormal Lab Results 07/07/19 07/09/19 07/09/19 Range/Units 14:05 06:26 06:26 WBC 18.7 H (4.0-10.5) K/mm3 RBC 2.02 L (4.2-5.4) M/mm3 Hgb 6.0 L* (12.5-16.0) gm/dL Hct 17.6 L* D (37.0-47.0) % RDW 14.4 H (11.5-14.0) % Immature Gran % (Auto) 1.60 H (0.001-0.429) % Immature Gran # (Auto) 0.30 H (0.000-0.0310) K/mm3 Neutrophils % 85.7 H (42-75.0) % Lymphocytes % 6.3 L (20-51) % Neutrophils # 16.0 H (1.3-6.0) K/mm3 Lymphocytes # 1.18 L (1.5-3.5) k/mm3 Monocytes # 1.1 H (0.0-1.0) k/mm3 Sodium 130 L (132-142) mmol/L Carbon Dioxide 23.5 L (24-32.6) mmol/L Random Glucose 183 H (70-110) mg/dL Calcium 7.4 L (7.9-10.9) mg/dL ALT 11 L (19-67) U/L Total Protein 5.3 L (6.2-8.2) gm/dL Albumin 1.0 L (3.4-5.0) gm/dl Crossmatch See Detail - Exam Constitutional: Present: Alert, Cooperative, No distress Respiratory: Present: no respiratory distress Extremity: Present: other - RLE--> sensation diffusely diminished throughout her foot, wound present on plantar surface, no significant changes, mild diffuse erythema, significant deadening skin around wound, continued pitting edema diffusely, capillary refill brisk Eye contact: Present: cooperative Thoughts: Present: normal thought pattern Assessment/Plan Plan Narrative: -48y/o female scheduled to proceed with surgery of right below-knee amputation on 07/09/2019 -Proceed with surgical amputation today, patient will be monitored postoperatively continue inpatient stay with IV antibiotics -Postoperatively begin nonweightbearing right lower extremity -PT/OT will begin to progress with assistive devices -We will monitor postoperative dressings -Monitor patient for postoperative pain -Chronic medical conditions per medicine team -Return to p.o. diet as tolerated - Problems/Diagnosis (1) Cellulitis and abscess of foot excluding toe Problem: Acute (2) Status post below-knee amputation of right lower extremity Problem: Acute
--- NOTE | 2019-07-09 11:17 | PN ---
Subjective - Date and Time Seen Date: 07/09/19 Time: 11:11 Subjective Narrative: 48-year-old female admitted for necrotizing fasciitis and cellulitis of her right foot with subsequent sepsis was evaluated at bedside and was found to be afebrile and in no acute distress. Patient was prepared for her procedure of a right below the knee amputation to address her infection. She maintained stable vitals and has not had any recurrence of fever or chills. Patient is being treated with IV antibiotics as well as IV fluids, she is also receiving blood transfusion of PRBCs to address ongoing anemia. Patient's hemoglobin decreased further on this morning labs, this is thought to be likely dilutional effect of IV fluids that she is been treated with however as a precaution and given the fact that she is going to the OR today and is expected to have significant bleeding decision to transfuse the patient with PRBC was made. We will continue to monitor closely once she is out of the OR. Objective - Review of Systems Generalized/Overall Review: Reports: No Symptoms Reported EENTM: Reports: No Symptoms Reported Respiratory: Reports: No Symptoms Reported Cardiac: Reports: No Symptoms Reported Abdominal: Reports: No Symptoms Reported Genitourinary Symptoms: Reports: No Symptoms Reported Musculoskeletal Complaints: Reports: Joint Pain, Other - Right foot pain Neurological: Reports: No Symptoms Reported Skin: Reports: No Symptoms Reported Endocrine: Reports: No Symptoms Reported - Vitals Vitals: Last Vital Signs Temp 36.6 C 07/09/19 10:55 Pulse 81 07/09/19 10:55 Resp 18 07/09/19 10:55 BP 109/65 07/09/19 10:55 Pulse Ox 100 07/09/19 10:55 - Abnormal Lab Findings Abnormal Lab Findings: Abnormal Lab Results 07/07/19 07/09/19 07/09/19 Range/Units 14:05 06:26 06:26 WBC 18.7 H (4.0-10.5) K/mm3 RBC 2.02 L (4.2-5.4) M/mm3 Hgb 6.0 L* (12.5-16.0) gm/dL Hct 17.6 L* D (37.0-47.0) % RDW 14.4 H (11.5-14.0) % Immature Gran % (Auto) 1.60 H (0.001-0.429) % Immature Gran # (Auto) 0.30 H (0.000-0.0310) K/mm3 Neutrophils % 85.7 H (42-75.0) % Lymphocytes % 6.3 L (20-51) % Neutrophils # 16.0 H (1.3-6.0) K/mm3 Lymphocytes # 1.18 L (1.5-3.5) k/mm3 Monocytes # 1.1 H (0.0-1.0) k/mm3 Sodium 130 L (132-142) mmol/L Carbon Dioxide 23.5 L (24-32.6) mmol/L Random Glucose 183 H (70-110) mg/dL Calcium 7.4 L (7.9-10.9) mg/dL ALT 11 L (19-67) U/L Total Protein 5.3 L (6.2-8.2) gm/dL Albumin 1.0 L (3.4-5.0) gm/dl Crossmatch See Detail - Exam Constitutional: Present: Alert, Oriented x3, Cooperative, Well developed, Well nourished, No distress, Elderly, Morbidly obese ENT Exam: Present: normal ENT inspection, hearing grossly normal, pharynx normal, TMs normal Neck: Present: non-tender, full range of motion, supple, normal inspection, trachea midline Breasts: Present: Exam deferred, Nontender Respiratory: Present: chest non-tender, lungs clear, normal breath sounds, no respiratory distress, no accessory muscle use Cardiovascular/Chest: Present: normal peripheral pulses, regular rate, rhythm, no chest tenderness, no edema, no gallop, no JVD, no murmur, no rub Abdomen: Present: Normal bowel sounds, soft, nontender, nondistended, no rebound tenderness, no hepatospenomegaly, no masses /Rectal: Present: Exam deferred Extremity: Present: normal range of motion, no pedal edema, no calf tenderness, normal capillary refill, other - Putrid, draining, diabetic ulcer on sole of right foot. 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 - Problems/Diagnosis (1) Plantar fasciitis of right foot Problem: Acute (2) Uncontrolled diabetes mellitus Problem: Chronic (3) Hyponatremia Problem: Acute (4) Anemia Problem: Acute (5) Diabetic neuropathy Problem: Chronic Qualifiers: Qualified Code(s): E11.42 - Type 2 diabetes mellitus with diabetic polyneuropathy (6) Leukocytosis Problem: Acute
--- NOTE | 2019-07-09 11:17 | ANES ---
Post Anesthesia Discharge - Transfer of Care Transfer of Care handoff given to nurse: Yes - Discharge from PACU Discharge from PACU when meets criteria: Yes - Alert and comfortable.
--- NOTE | 2019-07-09 11:17 | OR ---
Operative Report - Dictated Report Narrative: Date: 07/09/2019 Surgeon: Frank Moreira M.D. Audograph Operator: Fausto Rosario PA-C provided a set of essential, skilled, educated hands that assisted in positioning, transfer, retraction, manipulation, irrigation, closure of wounds, and placement of dressings all of which could not be provided by the available surgical crew. Anesthesia: Spinal Preoperative diagnosis: Right foot diabetic foot ulcer with gangrenous foot infection Postoperative diagnosis: Right foot diabetic foot ulcer with gangrenous foot infection Procedure: Right below-knee amputation Estimated blood loss: None Tourniquet time: 65 Minutes at 300 millimeters mercury Specimens: Lower leg and foot for gross pathology Drain: Hemovac x1 Complications: None Indications: Patti is a 48-year-old female uncontrolled diabetic who has developed an ulcer and gangrenous infection of her right foot. Given her uncontrolled diabetes, poor wound healing capacity, and extent of infection, I recommended below knee amputation as a definitive treatment that would resolve her infection and provide the potential for good function with a prosthesis. I discussed the risks of surgery with the patient including, but not limited to, persistent infection, wound complications, need for higher level amputation, phantom limb pain, and risks with anesthesia. Procedure: After a timeout, general anesthetic was induced without complication and antibiotic consisting of 2 g of Ancef was administered. A sandbag bump was placed under the operative hip and the operative leg was placed on a bone foam ramp. A well-padded tourniquet was applied to the operative thigh. The operative extremity was then prepped and draped in usual sterile fashion. The operative leg was exsanguinated with an Esmarch bandage and the tourniquet was inflated to 300 mmHg. Attention was turned to marking out our soft tissue fla ps. A fátima for anterior flap was made approximately 10 cm distal to the tibial tubercle. The anterior flap was marked out to an include two thirds of the total circumference and a longer posterior flap was marked out encompassing roughly one third of the overall circumference. This was incised circumferentially with a sharp knife down to the level of the fascia. The fascia was incised and sharp dissection was carried out through the anterior compartment. The superficial and deep peroneal nerves were identified, injected with 1% marcaine, and sharply divided with a knife under mild tension. The anterior tibial vessels were identified and ligated with a silk tie. The periosteum was elevated off the tibia and we made a fátima for the bone cut at the appropriate level. The tibia was stripped of soft tissue circumferentially and 2 blunt Homans were placed. The tibial cut was then made with an oscillating saw. The anterior aspect was then beveled and the edges were smoothed. The fib ancelmo was then identified and stripped of its soft tissue circumferentially. Protecting the underlying soft tissues, the fibula was transected with an oscillating saw approximately 1 cm proximal to the level of our tibial cut. We then turned our attention to the posterior musculature. An amputation knife was used to bevel the posterior musculature to the appropriate length. The tibial nerve was identified, injected with 1% marcaine, and sharply transected with a knife under mild tension. The posterior tibial vessels were identified and ligated with silk ties. At this point the tourniquet was let down and hemostasis was obtained with a combination of direct pressure and electrocautery. Any remaining bleeding vessels were ligated with silk ties. There was minimal remaining bleeding and it was felt that a drain was not necessary. The wound was then copiously irrigated with normal saline. A submuscular hemovac drain was placed in the wound. A 2.0 mm drill bit was used to drill 4 holes through the anteromedial and anterolateral aspects of the tibia. #2 FiberWire was sewn through the posterior gastrocsoleus fascia in a krakow fashion. The free suture limbs were pulled through the drill holes and tied over the the anterior tibia to myodese the gastrocnemius and soleus fascia to the tibia creating a muscular pad underneath the cut end of the tibia. The anterior and posterior fascia was then approximated with a running barbed 0 PDS suture. The subcutaneous tissue and skin were then closed in a layered fashion with 3-0 Vicryl in an interrupted deep dermal fashion followed by sherlyn. The incision was dressed with Xeroform, 4 x 4's, ABD, soft roll, and an MAIRA wrap. Patient was then awoken and transferred to postanesthesia care in stable condition. All sponge, sharp, and instrument counts were correct prior to closing the wounds.
--- NOTE | 2019-07-09 11:40 | ANES ---
Post Anesthesia Assessment - Vital Signs Vitals: Last Vital Signs Temp 36.8 C 07/09/19 11:30 Pulse 83 07/09/19 11:30 Resp 14 07/09/19 11:30 BP 127/63 07/09/19 11:30 Pulse Ox 98 07/09/19 11:30 Airway Patency: Normal - Mental Status Level Of Consciousness: Awake, Alert, Appropriate - Pain Level Pain Score: 0 - N/V Assessment Nausea/Vomiting Presence: None Dehydration:: No
[2019-07-09] MEDS: lamoTRIgine 100 MG TABLET PO SCH ×2 (12:07→21:45)
[2019-07-09] MEDS: ASCORBIC ACID 500 MG TABLET PO SCH (12:07)
[2019-07-09] MEDS: FOLIC ACID 1 MG TABLET PO SCH (12:07)
[2019-07-09] MEDS: DOCUSATE SODIUM 100 MG CAPSULE PO SCH (12:08)
[2019-07-09] MEDS: MULTIVITAMINS 1 CAP CAPSULE PO SCH (12:08)
[2019-07-09] MEDS: oxyCODONE HCL/ACETAMINOPHEN 1 TAB TABLET PO PRN ×3 (12:23→21:44)
[2019-07-09 15:55] LABS: Hematocrit 24.2 % (37.0-47.0); Hemoglobin 8.2 gm/dL (12.5-16.0); Mean Cell Volume 87.4 fl (78-100); Mean Corpuscular Hemoglobin 29.6 pg (27-31); Mean Corpuscular Hgb Conc 33.9 g/dl (32-36); Mean Platelet Volume 9.4 fl (8-12.5); Platelet Count 320 K/mm3 (150-450); Red Blood Count 2.77 M/mm3 (4.2-5.4); Red Cell Distribution Width 14.8 % (11.5-14.0); White Blood Count 17.8 K/mm3 (4.0-10.5)
[2019-07-09] MEDS: ROSUVASTATIN CALCIUM 20 MG TABLET PO SCH (21:44)
[2019-07-09] MEDS: SENNOSIDES/DOCUSATE SODIUM 1 TAB TABLET PO SCH (21:45)
[2019-07-09] MEDS: INSULIN GLARGINE,HUM.REC.ANLOG 100 UNITS/ML VIAL SC SCH (21:53)
[2019-07-09] MEDS: Suvorexant [Belsomra] 20 MG PO SCH (21:59)
[2019-07-10] MEDS: FAMOTIDINE 20 MG in DEXTROSE 5 % IN WATER 100 ML IV SCH ×4 (01:53→07:39)
[2019-07-10] MEDS: ALPRAZolam 1 MG TABLET PO PRN ×2 (02:27→23:35)
[2019-07-10] MEDS: oxyCODONE HCL/ACETAMINOPHEN 1 TAB TABLET PO PRN ×2 (02:27→08:04)
[2019-07-10] MEDS: VANCOMYCIN HCL 1.5 GM in NORMAL SALINE 500 ML IV SCH (04:52)
[2019-07-10 06:44] LABS: Mean Cell Volume 89.3 fl (78-100); Mean Corpuscular Hemoglobin 29.9 pg (27-31); Mean Corpuscular Hgb Conc 33.5 g/dl (32-36); Mean Platelet Volume 9.9 fl (8-12.5); Neutrophil # 9.3 K/mm3 (1.3-6.0); Platelet Count 300 K/mm3 (150-450); Red Blood Count 2.61 M/mm3 (4.2-5.4); Red Cell Distribution Width 14.9 % (11.5-14.0); White Blood Count 11.7 K/mm3 (4.0-10.5)
[2019-07-10 06:57] LABS: Albumin * 1.2 gm/dl (3.4-5.0); Anion Gap 10.9 mmol/L (6.8-13.8); BUN/Creatinine Ratio 12.1 (9.0-21.6); Bilirubin, Total 0.4 mg/dL (0.0-1.1); Ca. Corrected For Albumin 9.6 mg/dL (8.4-10.2); Calcium * 7.7 mg/dL (7.9-10.9); Carbon Dioxide 23.8 mmol/L (24-32.6); Potassium 3.7 mmol/L (3.4-4.6); Total Protein 5.7 gm/dL (6.2-8.2)
[2019-07-10 07:00] LABS: Hemoglobin 7.8 gm/dL (12.5-16.0)
[2019-07-10 07:01] LABS: Hematocrit 23.3 % (37.0-47.0)
[2019-07-10] MEDS: INSULIN REGULAR, HUMAN 100 UNITS/ML VIAL SC SCH ×4 (07:16→20:01)
[2019-07-10] MEDS: INSULIN LISPRO 100 UNITS/ML VIAL SC SCH ×4 (07:16→20:01)
[2019-07-10] MEDS: PIPERACILLIN SODIUM/TAZOBACTAM 3.375 GM in DEXTROSE 5 % IN WATER 100 ML IV SCH ×6 (07:26→23:28)
[2019-07-10] MEDS: ASCORBIC ACID 500 MG TABLET PO SCH (08:03)
[2019-07-10] MEDS: ASPIRIN 325 MG TABLET.DR PO SCH (08:03)
[2019-07-10] MEDS: lamoTRIgine 100 MG TABLET PO SCH ×2 (08:03→20:03)
[2019-07-10] MEDS: MULTIVITAMINS 1 CAP CAPSULE PO SCH (08:03)
[2019-07-10] MEDS: DOCUSATE SODIUM 100 MG CAPSULE PO SCH (08:03)
[2019-07-10] MEDS: FOLIC ACID 1 MG TABLET PO SCH (08:03)
[2019-07-10] MEDS: FAMOTIDINE 20 MG TABLET PO SCH ×2 (11:27→20:05)
--- NOTE | 2019-07-10 11:35 | PN ---
Subjective - Date and Time Seen Date: 07/10/19 Time: 11:26 Subjective Narrative: I have mild pain in my right stump Objective Objective Narrative: 48-year-old female status post right below the knee amputation day #1 was evaluated at bedside was found to be afebrile and in no acute distress. Patient tolerated the procedure without any adverse events. She was transfused 2 units of PRBC to treat anemia. Labs this morning demonstrate stabilization of her hemoglobin above 7 and electrolytes all within normal limits. Patient's renal function has declined since arriving to the hospital, will continue to monitor this closely. At the moment she reports pain in her right stump, therefore she will be administered pain medications. Patient is currently undergoing in-hospital physical therapy to help her with transfers and to get her out of bed. Discharge planning is underway by manager of case management, it was recommended that the patient be discharged to a rehab facility but she declines and says she prefers to go home and do physical therapy there. Her leukocytosis has almost completely resolved since undergoing the amputation and her blood sugars are now adequately controlled. Follow-up labs have been ordered for tomorrow morning and will follow up with further recommendations from the orthopedic surgeon. - Review of Systems Generalized/Overall Review: Reports: No Symptoms Reported EENTM: Reports: No Symptoms Reported Respiratory: Reports: No Symptoms Reported Cardiac: Reports: No Symptoms Reported Abdominal: Reports: No Symptoms Reported Genitourinary Symptoms: Reports: No Symptoms Reported Musculoskeletal Complaints: Reports: Joint Pain Neurological: Reports: No Symptoms Reported Skin: Reports: No Symptoms Reported Endocrine: Reports: No Symptoms Reported - Vitals Vitals: Last Vital Signs Temp 36.3 C 07/10/19 06:00 Pulse 84 07/10/19 06:00 Resp 18 07/10/19 06:00 BP 108/55 07/10/19 06:00 Pulse Ox 100 07/10/19 06:00 - Abnormal Lab Findings Abnormal Lab Findings: Abnormal Lab Results 07/07/19 07/09/19 07/10/19 Range/Units 14:05 15:40 06:41 WBC 17.8 H 11.7 H D (4.0-10.5) K/mm3 RBC 2.77 L 2.61 L (4.2-5.4) M/mm3 Hgb 8.2 L 7.8 L* (12.5-16.0) gm/dL Hct 24.2 L 23.3 L* (37.0-47.0) % RDW 14.8 H 14.9 H (11.5-14.0) % Immature Gran % (Auto) 0.90 H (0.001-0.429) % Immature Gran # (Auto) 0.11 H (0.000-0.0310) K/mm3 Neutrophils % 79.0 H (42-75.0) % Lymphocytes % 11.0 L (20-51) % Neutrophils # 9.3 H (1.3-6.0) K/mm3 Lymphocytes # 1.29 L (1.5-3.5) k/mm3 Carbon Dioxide (24-32.6) mmol/L Est GFR (Non-Af Amer) (60-130) mL/min Calcium (7.9-10.9) mg/dL ALT (19-67) U/L Total Protein (6.2-8.2) gm/dL Albumin (3.4-5.0) gm/dl Crossmatch See Detail 07/10/19 Range/Units 06:41 WBC (4.0-10.5) K/mm3 RBC (4.2-5.4) M/mm3 Hgb (12.5-16.0) gm/dL Hct (37.0-47.0) % RDW (11.5-14.0) % Immature Gran % (Auto) (0.001-0.429) % Immature Gran # (Auto) (0.000-0.0310) K/mm3 Neutrophils % (42-75.0) % Lymphocytes % (20-51) % Neutrophils # (1.3-6.0) K/mm3 Lymphocytes # (1.5-3.5) k/mm3 Carbon Dioxide 23.8 L (24-32.6) mmol/L Est GFR (Non-Af Amer) 46 L D (60-130) mL/min Calcium 7.7 L (7.9-10.9) mg/dL ALT 11 L (19-67) U/L Total Protein 5.7 L (6.2-8.2) gm/dL Albumin 1.2 L (3.4-5.0) gm/dl Crossmatch - Exam Constitutional: Present: Alert, Oriented x3, Cooperative, Well developed, No distress, Morbidly obese ENT Exam: Present: normal ENT inspection, hearing grossly normal, pharynx normal, TMs normal Neck: Present: non-tender, full range of motion, supple, normal inspection, trachea midline Breasts: Present: Exam deferred Respiratory: Present: chest non-tender, lungs clear, normal breath sounds, no respiratory distress, no accessory muscle use Cardiovascular/Chest: Present: normal peripheral pulses, regular rate, rhythm, no chest tenderness, no edema, no gallop, no JVD, no murmur, no rub Abdomen: Present: Normal bowel sounds, soft, nontender, nondistended, no rebound tenderness, no hepatospenomegaly, no masses, obese /Rectal: Present: Exam deferred Extremity: Present: normal range of motion, non-tender, no pedal edema, no calf tenderness, leg pain, other - Right surgical lower extremity below the knee stump covered by clean dry dressings with drain in place. 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 We will continue with monotherapy with Zosyn and reevaluate labs in the morning. Patient is undergoing inpatient rehab for physical therapy which she is handling without any issues. Discharge planning is underway we will continue continue to follow-up with recommendations from Ortho. - Problems/Diagnosis (1) Plantar fasciitis of right foot Problem: Resolved (2) Uncontrolled diabetes mellitus Problem: Chronic Qualifiers: Diabetes mellitus type: type 2 (3) Hyponatremia Problem: Resolved (4) Anemia Problem: Acute (5) Diabetic neuropathy Problem: Chronic Qualifiers: Diabetes mellitus type: type 2 Diabetes mellitus complication detail: diabetic polyneuropathy Qualified Code(s): E11.42 - Type 2 diabetes mellitus with diabetic polyneuropathy (6) Leukocytosis Problem: Acute (7) Status post below knee amputation of right lower extremity Problem: Acute
--- NOTE | 2019-07-10 12:48 | PN ---
Subjective - Date and Time Seen Date: 07/10/19 Time: 07:40 Subjective Narrative: No acute events overnight. Patient is doing well sitting up on commode. Patient notes her pain is well controlled. She notes she has mild achy pain when she moves her leg, no significant sharp or shooting pain. She does note a throbbing type in sensation. Patient otherwise has no other significant complaints at this time. Objective - Vitals Vitals: Last Vital Signs Temp 36.3 C 07/10/19 06:00 Pulse 84 07/10/19 06:00 Resp 18 07/10/19 06:00 BP 108/55 07/10/19 06:00 Pulse Ox 100 07/10/19 06:00 - Abnormal Lab Findings Abnormal Lab Findings: Abnormal Lab Results 07/07/19 07/09/19 07/10/19 Range/Units 14:05 15:40 06:41 WBC 17.8 H 11.7 H D (4.0-10.5) K/mm3 RBC 2.77 L 2.61 L (4.2-5.4) M/mm3 Hgb 8.2 L 7.8 L* (12.5-16.0) gm/dL Hct 24.2 L 23.3 L* (37.0-47.0) % RDW 14.8 H 14.9 H (11.5-14.0) % Immature Gran % (Auto) 0.90 H (0.001-0.429) % Immature Gran # (Auto) 0.11 H (0.000-0.0310) K/mm3 Neutrophils % 79.0 H (42-75.0) % Lymphocytes % 11.0 L (20-51) % Neutrophils # 9.3 H (1.3-6.0) K/mm3 Lymphocytes # 1.29 L (1.5-3.5) k/mm3 Carbon Dioxide (24-32.6) mmol/L Est GFR (Non-Af Amer) (60-130) mL/min Calcium (7.9-10.9) mg/dL ALT (19-67) U/L Total Protein (6.2-8.2) gm/dL Albumin (3.4-5.0) gm/dl Crossmatch See Detail 07/10/19 Range/Units 06:41 WBC (4.0-10.5) K/mm3 RBC (4.2-5.4) M/mm3 Hgb (12.5-16.0) gm/dL Hct (37.0-47.0) % RDW (11.5-14.0) % Immature Gran % (Auto) (0.001-0.429) % Immature Gran # (Auto) (0.000-0.0310) K/mm3 Neutrophils % (42-75.0) % Lymphocytes % (20-51) % Neutrophils # (1.3-6.0) K/mm3 Lymphocytes # (1.5-3.5) k/mm3 Carbon Dioxide 23.8 L (24-32.6) mmol/L Est GFR (Non-Af Amer) 46 L D (60-130) mL/min Calcium 7.7 L (7.9-10.9) mg/dL ALT 11 L (19-67) U/L Total Protein 5.7 L (6.2-8.2) gm/dL Albumin 1.2 L (3.4-5.0) gm/dl Crossmatch - Exam Constitutional: Present: Alert, Cooperative, No distress Respiratory: Present: no respiratory distress Extremity: Present: other - RLE--> below-knee amputation, bandages clean/dry/intact, diffuse mild tenderness at the distal end of the stump, sensation intact light touch, patient is sitting in a flexed position, able to extend to -10 degrees passively Eye contact: Present: cooperative Thoughts: Present: normal thought pattern Assessment/Plan Plan Narrative: -48 y/o female postop day 1 status post right below-knee amputation -PT/OT progress with single leg ambulation with assistive device, work on flexion extension motion of right lower extremity -Continue IV antibiotics until drain has been removed -Continue with postoperative dressings in place -DVT prophylaxis: Continue 325 mg aspirin daily p.o., SCDs in bed, EVERARDO hose knee-high on left lower extremity -P.o. diet as tolerated -P.o. pain medication PRN -Chronic medical conditions per medical team -Disposition: Continue inpatient monitoring, continue IV antibiotics continue drain management, continue to monitor for postoperative complications, consider discharge planning tomorrow pending on patient's need need for higher levels of care - Problems/Diagnosis (1) Cellulitis and abscess of foot excluding toe Problem: Acute (2) Status post below-knee amputation of right lower extremity Problem: Acute
[2019-07-10] MEDS ORDERED: HYDROcodone/ACETAMINOPHEN 1 EACH TABLET PO PRN ×2 (16:52→16:56)
[2019-07-10] MEDS: HYDROcodone/ACETAMINOPHEN 1 EACH TABLET PO PRN ×2 (17:08→23:35)
[2019-07-10] MEDS: ROSUVASTATIN CALCIUM 20 MG TABLET PO SCH (20:03)
[2019-07-10] MEDS: INSULIN GLARGINE,HUM.REC.ANLOG 100 UNITS/ML VIAL SC SCH (20:03)
[2019-07-10] MEDS: SENNOSIDES/DOCUSATE SODIUM 1 TAB TABLET PO SCH (20:05)
[2019-07-10] MEDS: Suvorexant [Belsomra] 20 MG PO SCH (20:05)
[2019-07-11] MEDS: PIPERACILLIN SODIUM/TAZOBACTAM 3.375 GM in DEXTROSE 5 % IN WATER 100 ML IV SCH ×2 (05:12)
[2019-07-11 07:17] LABS: Mean Cell Volume 88.3 fl (78-100); Mean Corpuscular Hemoglobin 29.3 pg (27-31); Mean Corpuscular Hgb Conc 33.2 g/dl (32-36); Mean Platelet Volume 9.2 fl (8-12.5); Neutrophil # 7.8 K/mm3 (1.3-6.0); Neutrophil % 74.8 % (42-75.0); Platelet Count 364 K/mm3 (150-450); Red Blood Count 2.66 M/mm3 (4.2-5.4); Red Cell Distribution Width 15.1 % (11.5-14.0); White Blood Count 10.5 K/mm3 (4.0-10.5)
[2019-07-11] MEDS: HYDROcodone/ACETAMINOPHEN 1 EACH TABLET PO PRN (07:19)
[2019-07-11 07:30] LABS: Albumin * 1.1 gm/dl (3.4-5.0); Anion Gap 14.6 mmol/L (6.8-13.8); BUN/Creatinine Ratio 10.5 (9.0-21.6); Bilirubin, Total 0.3 mg/dL (0.0-1.1); Carbon Dioxide 23.1 mmol/L (24-32.6); Potassium 3.7 mmol/L (3.4-4.6); Total Protein 5.7 gm/dL (6.2-8.2)
[2019-07-11 07:41] LABS: Hematocrit 23.5 % (37.0-47.0); Hemoglobin 7.8 gm/dL (12.5-16.0)
[2019-07-11] MEDS: INSULIN LISPRO 100 UNITS/ML VIAL SC SCH (08:15)
[2019-07-11] MEDS: INSULIN REGULAR, HUMAN 100 UNITS/ML VIAL SC SCH (08:15)
[2019-07-11] MEDS: lamoTRIgine 100 MG TABLET PO SCH (09:51)
[2019-07-11] MEDS: DOCUSATE SODIUM 100 MG CAPSULE PO SCH (09:51)
[2019-07-11] MEDS: MULTIVITAMINS 1 CAP CAPSULE PO SCH (09:51)
[2019-07-11] MEDS: ASPIRIN 325 MG TABLET.DR PO SCH (09:51)
[2019-07-11] MEDS: FAMOTIDINE 20 MG TABLET PO SCH (09:51)
[2019-07-11] MEDS: FOLIC ACID 1 MG TABLET PO SCH (09:51)
[2019-07-11] MEDS: ASCORBIC ACID 500 MG TABLET PO SCH (09:51)
--- NOTE | 2019-07-11 12:20 | DS ---
(1) Plantar fasciitis of right foot Problem: Resolved (2) Uncontrolled diabetes mellitus Problem: Chronic Qualifiers: Diabetes mellitus type: type 2 (3) Hyponatremia Problem: Resolved (4) Anemia Problem: Acute (5) Diabetic neuropathy Problem: Chronic Qualifiers: Diabetes mellitus type: type 2 Diabetes mellitus complication detail: diabetic polyneuropathy Qualified Code(s): E11.42 - Type 2 diabetes mellitus with diabetic polyneuropathy (6) Leukocytosis Problem: Resolved (7) Status post below knee amputation of right lower extremity Problem: Acute (8) JOHANA (acute kidney injury) Problem: Acute Date of Discharge:: 07/11/19 Hospital Course: 48-year-old female status post right below the knee amputation day #2 was evaluated at bedside was found to be afebrile and in no acute distress. Patient was originally admitted for necrotizing fasciitis of her right lower extremity, uncontrolled type 2 diabetes, and sepsis which have all been resolved with the amputation of the affected limb. Since the surgery her blood glucose readings have improved drastically and her leukocytosis have resolved. Patient was treated with IV antibiotics and IV fluids. She tolerated the treatment without any issues. Patient was evaluated at bedside by the orthopedic surgeon who has cleared the patient for discharge with instructions to undergo rehab with PT and OT and orders to follow-up in 2 weeks in his office. Patient was discharged with a prescription for oral antibiotics which she will take for 2 weeks as well as pain medications. She was informed that she continues to have post operative anemia secondary to her blood loss during the surgery and contributing factors such as IV fluids. She was also told that her renal function is below her baseline so that will need to be monitored by her PCP. She was provided with orders to repeat labs specifically a CBC and a CMP in 2 weeks. Patient was provided with education and counseling on management of type 2 diabetes, she agreed to make an effort to control her blood sugars. It was recommended by myself and orthopedic team for the patient to go to a rehab facility for optimal rehab with PT and OT but she vehemently refused and wants to do the therapy at home, therefore she is being discharged to her home with home health which was already established with PT and OT. Medical equipment has been ordered and arranged by the case management team. Procedures Performed: see notes below - Right below the knee amputation Results and Findings: Pending Mircobiology Results 07/07/19 13:15 Blood Blood Culture - Preliminary NO GROWTH AFTER 48 HOURS 07/07/19 13:13 Blood Blood Culture - Preliminary NO GROWTH AFTER 48 HOURS Lab Pending Results 07/07/19 13:36: WBC 23.0 H, RBC 2.39 L, Hgb 7.1 L*, Hct 20.8 L*, MCV 87.0, MCH 29.7, MCHC 34.1, RDW 14.0, Plt Count 374, MPV 9.5, Immature Gran % (Auto) 1.50 H, Immature Gran # (Auto) 0.35 H, Neutrophils % 87.1 H, Lymphocytes % 5.1 L, Monocytes % 6.0, Eosinophils % 0.2, Basophils % 0.1, Nucleated RBC % 0.0, Neutrophils # 20.0 H, Lymphocytes # 1.16 L, Monocytes # 1.4 H, Eosinophils # 0.1, Absolute Basophils 0.0 07/07/19 13:36: Sodium 128 L, Plasma Sodium 131, Potassium 3.8, Chloride 95 L, Carbon Dioxide 23.4 L, Anion Gap 13.4, BUN 11, Creatinine 1.27, Est GFR (Non-Af Amer) 48 L D, BUN/Creatinine Ratio 8.7 L, Random Glucose 275 H, Calcium 7.9, Calcium Adj for Albumin 9.7, Total Bilirubin 0.6, AST 9, ALT 10 L, Alkaline Phosphatase 138, C-Reactive Prot, Quant 27.4 H, B-Natriuretic Peptide 2878 H, Total Protein 5.9 L, Albumin 1.4 L 07/07/19 13:36: Lactic Acid, Venous 1.1 07/07/19 14:05: Blood Type O Positive, Antibody Screen Negative, Crossmatch See Detail 07/08/19 06:32: WBC 22.7 H, RBC 2.54 L, Hgb 7.4 L*, Hct 22.2 L*, MCV 87.4, MCH 29.1, MCHC 33.3, RDW 14.3 H, Plt Count 421, MPV 9.6, Immature Gran % (Auto) 1.40 H, Immature Gran # (Auto) 0.32 H, Neutrophils % 86.6 H, Lymphocytes % 5.9 L, Monocytes % 5.6, Eosinophils % 0.4, Basophils % 0.1, Nucleated RBC % 0.0, Neutrophils # 19.6 H, Lymphocytes # 1.34 L, Monocytes # 1.3 H, Eosinophils # 0.1, Absolute Basophils 0.0 07/08/19 06:32: Sodium 130 L, Plasma Sodium 132, Potassium 4.0, Chloride 98, Carbon Dioxide 24.2, Anion Gap 11.8, BUN 12, Creatinine 1.12, Est GFR (Non-Af Amer) 55 L, BUN/Creatinine Ratio 10.7, Random Glucose 198 H, Calcium 7.7 L, Calcium Adj for Albumin 9.5, Total Bilirubin 0.4, AST 9, ALT 9 L, Alkaline Phosphatase 141, Total Protein 5.9 L, Albumin 1.3 L 07/09/19 03:45: Vancomycin Trough 16.3 07/09/19 06:26: WBC 18.7 H, RBC 2.02 L, Hgb 6.0 L*, Hct 17.6 L* D, MCV 87.1, MCH 29.7, MCHC 34.1, RDW 14.4 H, Plt Count 340, MPV 9.6, Immature Gran % (Auto) 1.60 H, Immature Gran # (Auto) 0.30 H, Neutrophils % 85.7 H, Lymphocytes % 6.3 L, Monocytes % 5.9, Eosinophils % 0.4, Basophils % 0.1, Nucleated RBC % 0.0, Neutrophils # 16.0 H, Lymphocytes # 1.18 L, Monocytes # 1.1 H, Eosinophils # 0.1, Absolute Basophils 0.0 07/09/19 06:26: Sodium 130 L, Plasma Sodium 131, Potassium 3.8, Chloride 99, Carbon Dioxide 23.5 L, Anion Gap 11.3, BUN 13, Creatinine 1.01, Est GFR (Non-Af Amer) 62, BUN/Creatinine Ratio 12.9, Random Glucose 183 H, Calcium 7.4 L, Calcium Adj for Albumin 9.5, Total Bilirubin 0.3, AST 13, ALT 11 L, Alkaline Phosphatase 142, Total Protein 5.3 L, Albumin 1.0 L 07/09/19 09:24: Pathology Specimen Spec to path 07/09/19 15:40: WBC 17.8 H, RBC 2.77 L, Hgb 8.2 L, Hct 24.2 L, MCV 87.4, MCH 29.6, MCHC 33.9, RDW 14.8 H, Plt Count 320, MPV 9.4 07/10/19 06:41: WBC 11.7 H D, RBC 2.61 L, Hgb 7.8 L*, Hct 23.3 L*, MCV 89.3, MCH 29.9, MCHC 33.5, RDW 14.9 H, Plt Count 300, MPV 9.9, Immature Gran % (Auto) 0.90 H, Immature Gran # (Auto) 0.11 H, Neutrophils % 79.0 H, Lymphocytes % 11.0 L, Monocytes % 7.5, Eosinophils % 1.4, Basophils % 0.2, Nucleated RBC % 0.0, Neutrophils # 9.3 H, Lymphocytes # 1.29 L, Monocytes # 0.9, Eosinophils # 0.2, Absolute Basophils 0.0 07/10/19 06:41: Sodium 136, Plasma Sodium 136, Potassium 3.7, Chloride 105, Carbon Dioxide 23.8 L, Anion Gap 10.9, BUN 16, Creatinine 1.32, Est GFR (Non-Af Amer) 46 L D, BUN/Creatinine Ratio 12.1, Random Glucose 104 D, Calcium 7.7 L, Calcium Adj for Albumin 9.6, Total Bilirubin 0.4, AST 20, ALT 11 L, Alkaline Phosphatase 133, Total Protein 5.7 L, Albumin 1.2 L 07/11/19 07:10: WBC 10.5, RBC 2.66 L, Hgb 7.8 L*, Hct 23.5 L*, MCV 88.3, MCH 29.3, MCHC 33.2, RDW 15.1 H, Plt Count 364, MPV 9.2, Immature Gran % (Auto) 1.10 H, Immature Gran # (Auto) 0.12 H, Neutrophils % 74.8, Lymphocytes % 13.7 L, Monocytes % 9.0, Eosinophils % 1.3, Basophils % 0.1, Nucleated RBC % 0.0, Neutrophils # 7.8 H, Lymphocytes # 1.43 L, Monocytes # 0.9, Eosinophils # 0.1, Absolute Basophils 0.0 07/11/19 07:10: Sodium 138, Plasma Sodium 138, Potassium 3.7, Chloride 104, Carbon Dioxide 23.1 L, Anion Gap 14.6 H, BUN 16, Creatinine 1.52 H, Est GFR (Non-Af Amer) 39 L, BUN/Creatinine Ratio 10.5, Random Glucose 75, Calcium 8.0, Calcium Adj for Albumin 10.0, Total Bilirubin 0.3, AST 18, ALT 12 L, Alkaline Phosphatase 175 H, Total Protein 5.7 L, Albumin 1.1 L Discharge Location: Home Disposition: Home Health Service Condition: Stable Face to Face Encounter completed per [facility] Guidelines: Yes Discharge Activity: Activity as tolerated Discharge Diet: Consistent carbs Referrals: Yamila Garcia MD [Primary Care Provider] - Additional Patient Instructions (free text): Previous scheduled appointment with 07/14 @ 1500. Previous scheduled appointment with Araseli Bolden 07/16 @ 0830. [facility] on going, please call and fax them discharge information. Prescriptions (Any new or edited meds): Cephalexin [Keflex] 500 mg PO QID #56 cap Transmission Status: Sent to [place], [place] HYDROcodone/ACETAMINOPHEN [[place] 5-325] 1 - 2 tab PO Q6H PRN #60 tab PRN Reason: Pain Transmission Status: Received by [place], [place] Complete Home Medications List: Complete Home Medication List: Atorvastatin Calcium 40 mg PO HS 12/17/18 Omeprazole [Prilosec] 20 mg PO DAILY 12/17/18 ascorbic acid (vitamin C) 500 mg capsule 500 mg PO DAILY cap 01/20/19 multivitamin 1 tab PO DAILY 01/20/19 insulin aspart U-100 100 unit/mL (3 mL) subcutaneous pen 20 unit SUBCUT TID ml 02/05/19 alprazolam 1 mg tablet 1 mg PO TID PRN #90 tab 06/11/19 aripiprazole lauroxil 882 mg/3.2 mL suspension, ext.rel. IM syringe 882 mg IM Q6W #3.2 ml 06/11/19 dextroamphetamine-amphetamine 20 mg tablet 20 mg PO BID #60 tab 06/11/19 fluphenazine HCl 5 mg tablet 5 mg PO BID PRN #60 tab 06/11/19 fluphenazine decanoate 25 mg/mL injection solution 25 mg IM Q3W #1 ml 06/11/19 lamotrigine 200 mg tablet 200 mg PO BID #60 tab 06/11/19 suvorexant 20 mg tablet 20 mg PO HS #30 tab 06/11/19 Folic Acid 1 mg PO DAILY tab 07/04/19 Insulin Degludec [Tresiba Flextouch U-200] 50 unit SQ HS #5 appl 07/04/19 Cephalexin [Keflex] 500 mg PO QID #56 cap 07/11/19 HYDROcodone/ACETAMINOPHEN [[place] 5-325] 1 - 2 tab PO Q6H PRN #60 tab 07/11/19
[2019-07-11 13:09] VITALS: BP 127/70
[2019-07-18] MEDS ORDERED: Aripiprazole Lauroxil [Aristada] 882 MG IM SCH (18:15)
== END 2019-07-11 12:45 | disposition home health service (06) | DRG 853 ==
LOC: ER 12:56 → MS 14:56
PROVIDERS: ADMIT Family Medicine; ATTEND Family Medicine
DX: E11.42 Type 2 diabetes mellitus with diabetic polyneuropathy; A41.9 Sepsis, unspecified organism; E11.52 Type 2 diabetes mellitus with diabetic peripheral angiopathy with gangrene; I10 Essential (primary) hypertension; J44.9 Chronic obstructive pulmonary disease, unspecified; N17.9 Acute kidney failure, unspecified; L02.611 Cutaneous abscess of right foot; E87.1 Hypo-osmolality and hyponatremia; E11.628 Type 2 diabetes mellitus with other skin complications; L97.519 Non-pressure chronic ulcer of other part of right foot with unspecified severity; D72.829 Elevated white blood cell count, unspecified; L03.115 Cellulitis of right lower limb; F17.210 Nicotine dependence, cigarettes, uncomplicated; E11.65 Type 2 diabetes mellitus with hyperglycemia; E11.621 Type 2 diabetes mellitus with foot ulcer; M72.6 Necrotizing fasciitis; I96 Gangrene, not elsewhere classified; D62 Acute posthemorrhagic anemia; Z79.4 Long term (current) use of insulin
CPT/HCPCS: 36415; 73630; 73720; 80053; 80202; 83519; 83605; 83880; 85025; 85027; 86140; 86850; 87040; 87070; 88307; 94660; 96374; 97110; 97162; 97165; 97530; 99285; A9576; J2405; P9016